=== PATIENT | male | born 1950 | race African-American/Black ===

== ENCOUNTER 2018-08-28 12:56 | Emergency (ER) | payer OTHER, BC ==
[~2018-08-28] VITALS: Ht 177.8 cm; Wt 70.3 kg
[~2018-08-28 12:56] MED LIST: ALEVE220 MG PO; ASA5UEC PO; ASPIR 8181 MG PO; ASPIRIN EC81 M1 PO; BYSTOLIC 5 MG5 M1 PO; BYSTOLIC10 MG PO; COZAAR 50 MG TA50 M2 PO; CYCLOBENZAPRINE10 MG PO; DARVOCET-N 1001 EACH PO; DIABETA; EFFIENT10 MG PO; GLYBURIDE 2.52.5 MG PO; HCTZ; LASIX 40 MG TAB40 M2 PO; LOPRESSOR; LOPRESSOR50 PO; METFORMIN; METFORMIN HCL500 MG PO; POTASSIUM20 PO; SIMVASTATIN; VITAMIN D3400 UNIT PO
[2018-08-28 13:20] LABS: ABSOLUTE NEUTROPHILS 5.6 thou/uL (1.4-8.2); BASOPHILS 1.1 % (0.0-2.0); EOSINOPHILS 7.4 % (0.0-3.0); HEMATOCRIT 38.9 % (42.0-52.0); HEMOGLOBIN 13.4 gm/dL (14.0-18.0); LYMPHOCYTES 17.2 % (24.0-44.0); MCH 29.2 pg (26.0-34.0); MCHC 34.4 g/dL (28.0-37.0); MCV 84.9 fL (80.0-100.0); MONOCYTES 6.1 % (1.0-8.0); PLATELET COUNT 224 thou/uL (150-400); POLYS 68.2 % (36.0-66.0); RBC 4.59 mil/uL (4.50-6.00); RDW 15.9 % (10.5-14.5); WBC 8.2 thou/uL (4.0-11.0)
[2018-08-28 13:29] LABS: ANION GAP 6 mmol/L (7-16); BUN 19 mg/dL (7-18); CALCIUM 9.5 mg/dL (8.5-10.1); CHLORIDE 99 mmol/L (98-107); CO2 32 mmol/L (21-32); CREATININE 1.6 mg/dL (0.7-1.3); GLUCOSE 351 mg/dL (74-106); POTASSIUM 5.1 mmol/L (3.5-5.1); SODIUM 137 mmol/L (136-145)
[2018-08-28] MEDS ORDERED: CILOSTAZOL 100100 M1 PO (13:37)
[2018-08-28 13:38] LABS: TROPONIN-I <0.06 ng/mL (<0.06)
[2018-08-28] MEDS ORDERED: TYLENOL325 M1 PO (15:12)
[2018-08-28] MEDS ORDERED: ULTRAM 50MG TAB50 MG PO (15:12)
[2018-08-28 15:19] VITALS: BP 141/76
--- NOTE | 2018-08-28 18:07 | EKG ---
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1950 Requested By: Miky Ornelas Order Number: [id number] MD: Enrrique Maya Measurements Intervals [place] Rate: 83 P: 60 NV: 130 QRS: 16 QRSD: 79 T: 226 QT: 373 QTc: 439 Interpretive Statements Sinus rhythm Nonspecific ST segment abnormality Compared to ECG 12/25/2015 07:45:57 No significant change was found Electronically Signed On 08-28-2018 18:06:54 CDT by Enrrique Maya [email or web address] ��������������������������������������������� <ELECTRONICALLY SIGNED> ���������������������������������������� By: Enrrique Maya MD, [facility] ��������������������������������������������� 08/28/18 1806 1308 1308 Enrrique Maya MD, FACC /EPI
== END 2018-08-28 15:28 | disposition home or self-care (01) ==
LOC: ER 12:56
PROVIDERS: Emergency Medicine
DX: R07.89 Other chest pain (principal); E11.9 Type 2 diabetes mellitus without complications; I10 Essential (primary) hypertension; E78.5 Hyperlipidemia, unspecified; Z86.19 Personal history of other infectious and parasitic diseases

== ENCOUNTER 2019-03-05 22:59 | Emergency (ER) | payer BC, OTHER ==
[~2019-03-05] VITALS: Ht 165.1 cm; Wt 63.5 kg
[~2019-03-05 22:59] MED LIST changes: +CILOSTAZOL 100100 M1 PO; +TYLENOL325 M1 PO; +ULTRAM 50MG TAB50 MG PO
[2019-03-06 00:58] LABS: ABSOLUTE NEUTROPHILS 6.3 thou/uL (1.4-8.2); BASOPHILS 0.7 % (0.0-2.0); EOSINOPHILS 9.5 % (0.0-3.0); HEMATOCRIT 40.8 % (42.0-52.0); LYMPHOCYTES 12.4 % (24.0-44.0); MCH 29.9 pg (26.0-34.0); MCHC 34.5 g/dL (28.0-37.0); MCV 86.7 fL (80.0-100.0); PLATELET COUNT 252 thou/uL (150-400); POLYS 70.4 % (36.0-66.0); RDW 15.1 % (10.5-14.5)
[2019-03-06 01:01] LABS: ANION GAP 7 mmol/L (7-16); BUN 21 mg/dL (7-18); CALCIUM 9.1 mg/dL (8.5-10.1); CHLORIDE 100 mmol/L (98-107); CO2 30 mmol/L (21-32); CREATININE 1.5 mg/dL (0.7-1.3); GLUCOSE 176 mg/dL (74-106); POTASSIUM 4.8 mmol/L (3.5-5.1); SODIUM 137 mmol/L (136-145)
[2019-03-06 01:11] LABS: ALBUMIN 3.6 g/dL (3.4-5.0); SGOT 16 U/L (15-37); SGPT 16 U/L (30-65); TOTAL BILIRUBIN 0.5 mg/dL (<0.1-1.0); TOTAL PROTEIN 8.6 g/dL (6.4-8.2); TROPONIN-I <0.06 ng/mL (<0.06)
[2019-03-06] MEDS ORDERED: GUAIFEN-CODEINE10 ML PO (02:59)
[2019-03-06] MEDS ORDERED: ZITHROMAX250 MG PO (02:59)
[2019-03-06 03:41] VITALS: BP 161/87
--- NOTE | 2019-03-06 15:12 | EKG ---
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
== END 2019-03-06 03:40 | disposition home or self-care (01) ==
LOC: ER 22:59
PROVIDERS: Emergency Medicine
DX: J18.9 Pneumonia, unspecified organism (principal); R07.89 Other chest pain; I10 Essential (primary) hypertension; E11.9 Type 2 diabetes mellitus without complications; E78.5 Hyperlipidemia, unspecified; I25.2 Old myocardial infarction; Z98.890 Other specified postprocedural states; Z95.2 Presence of prosthetic heart valve

== ENCOUNTER 2019-03-09 13:03 | Emergency (ER) | payer BC, OTHER ==
[~2019-03-09] VITALS: Ht 165.1 cm; Wt 63.5 kg
[~2019-03-09 13:03] MED LIST changes: +GUAIFEN-CODEINE10 ML PO; +ZITHROMAX250 MG PO
[2019-03-09] MEDS ORDERED: BYSTOLIC 5 MG5 M1 PO (13:32)
[2019-03-09 13:48] LABS: ABSOLUTE NEUTROPHILS 4.6 thou/uL (1.4-8.2); BASOPHILS 0.8 % (0.0-2.0); EOSINOPHILS 9.5 % (0.0-3.0); HEMATOCRIT 41.3 % (42.0-52.0); HEMOGLOBIN 13.8 gm/dL (14.0-18.0); LYMPHOCYTES 16.1 % (24.0-44.0); MCH 28.7 pg (26.0-34.0); MCHC 33.5 g/dL (28.0-37.0); MCV 85.8 fL (80.0-100.0); MONOCYTES 7.8 % (1.0-8.0); PLATELET COUNT 244 thou/uL (150-400); POLYS 65.8 % (36.0-66.0); RBC 4.82 mil/uL (4.50-6.00); RDW 15.4 % (10.5-14.5); WBC 7.1 thou/uL (4.0-11.0)
[2019-03-09 13:52] LABS: ANION GAP 7 mmol/L (7-16); BUN 15 mg/dL (7-18); CALCIUM 9.2 mg/dL (8.5-10.1); CHLORIDE 100 mmol/L (98-107); CO2 27 mmol/L (21-32); CREATININE 1.3 mg/dL (0.7-1.3); GLUCOSE 112 mg/dL (74-106); POTASSIUM 4.5 mmol/L (3.5-5.1); SODIUM 134 mmol/L (136-145)
[2019-03-09 14:02] LABS: ALBUMIN 3.4 g/dL (3.4-5.0); SGOT 24 U/L (15-37); SGPT 15 U/L (30-65); TOTAL BILIRUBIN 0.7 mg/dL (<0.1-1.0); TOTAL PROTEIN 8.2 g/dL (6.4-8.2); TROPONIN-I <0.06 ng/mL (<0.06)
[2019-03-09 14:12] LABS: URINE BILIRUBIN NEGATIVE (Negative); URINE BLOOD 2+ (Negative); URINE CLARITY CLEAR; URINE COLOR YELLOW; URINE GLUCOSE-RANDOM* NEGATIVE (Negative); URINE KETONES NEGATIVE (Negative); URINE LEUKOCYTES NEGATIVE (Negative); URINE NITRITE NEGATIVE (Negative); URINE PROTEIN (DIPSTICK) 3+ (Negative); URINE SPECIFIC GRAVITY >= 1.030 (1.005-1.035)
[2019-03-09 14:22] LABS: BACTERIA 1-9 Few /HPF (None Seen); CASTS None Seen /LPF (None Seen); CRYSTALS None Seen /LPF (None Seen); SQUAMOUS None Seen /LPF (0-3); URINE RBC 3-10 Few /HPF (0-2); URINE WBC 0-5 Rare /HPF (0-5)
[2019-03-09 15:00] VITALS: BP 93/59
[2019-03-09] MEDS ORDERED: TESSALON PERLE100 MG PO (15:02)
[2019-03-09] MEDS ORDERED: PROMETH-CODEIN 65 ML PO (15:02)
== END 2019-03-09 15:18 | disposition home or self-care (01) ==
LOC: ER 13:03
PROVIDERS: Emergency Medicine
DX: J06.9 Acute upper respiratory infection, unspecified (principal); E11.9 Type 2 diabetes mellitus without complications; I10 Essential (primary) hypertension; E78.5 Hyperlipidemia, unspecified; Z88.8 Allergy status to other drugs, medicaments and biological substances

== ENCOUNTER 2019-07-07 09:48 | Inpatient (IN) | payer BC, OTHER ==
[~2019-07-07] VITALS: Ht 162.6 cm; Wt 68.5 kg
[~2019-07-07 09:48] MED LIST changes: +ATORVASTATIN CA80 MG PO; +CLOPIDOGREL75 MG PO; +PROMETH-CODEIN 65 ML PO; +TESSALON PERLE100 MG PO
[2019-07-07 13:00] VITALS: BP 138/81
[2019-07-07 14:12] LABS: HEMATOCRIT 34.5 % (42.0-52.0); HEMOGLOBIN 11.4 gm/dL (14.0-18.0); MCH 28.1 pg (26.0-34.0); RBC 4.06 mil/uL (4.50-6.00); RDW 14.7 % (10.5-14.5); WBC 9.1 thou/uL (4.0-11.0)
[2019-07-07 14:30] LABS: CREATININE 1.5 mg/dL (0.7-1.3); POTASSIUM 4.2 mmol/L (3.5-5.1)
[2019-07-07 14:34] LABS: PROTIME 10.7 Seconds (9.3-11.4)
[2019-07-07 14:36] LABS: ALBUMIN 3.1 g/dL (3.4-5.0); TOTAL BILIRUBIN 0.5 mg/dL (<0.1-1.0); TOTAL PROTEIN 8.3 g/dL (6.4-8.2)
--- NOTE | 2019-07-07 15:22 | NUR ---
iv team paged a couple times for an order for PICC LINE instertion. Will try again
--- NOTE | 2019-07-07 15:41 | NUR ---
1300 pt admitted to 363, heart monitor applied. Vital signs, assessment and admission history completed. Fall risk and other consents signed. Pt belongings given to family.Pt personal pohone with pt. Dr. bolton in to see pt. Order's acknowledged.Pt decline SCD'S due to pain in the right foot. pt oriented to room. Call light and table within reach. Bed alarm on. Will continue to monitor. see assessment in patient chart.
--- NOTE | 2019-07-07 16:21 | NUR ---
DISCUSSED WITH PT MIDLINE OPTION PER SUGGESTION OF DR SZYMANSKI. PT REFUSED PIV INSERTED WITHOUT DIFFICULTY.
[2019-07-07 19:55] VITALS: BP 154/86
[2019-07-07 21:04] VITALS: BP 150/90
[2019-07-07 22:15] LABS: URINE BILIRUBIN NEGATIVE (Negative); URINE BLOOD TRACE (Negative); URINE CLARITY CLEAR; URINE COLOR YELLOW; URINE GLUCOSE-RANDOM* NEGATIVE (Negative); URINE KETONES NEGATIVE (Negative); URINE LEUKOCYTES-REFLEX NEGATIVE (Negative); URINE NITRITE-REFLEX NEGATIVE (Negative); URINE PROTEIN (DIPSTICK) 3+ (Negative); URINE SPECIFIC GRAVITY >= 1.030 (1.005-1.035)
--- NOTE | 2019-07-07 22:23 | NUR ---
PT WATCHING TV VISITING WITH FAMILY. IVF AND ANTIBIOTIC GOING. PT REQUESTED PILLOWS TO ELEVATE FEET. R TOE REMAINS GANGRENE. PT REPORTS PAIN AND FEELING IN TOE AND PRN PAIN MED PROVIDED. POSTIVE BLE AND PEDAL CIRCULATION. PT VERBALIZED UNDERSTANDING OF NPO P [place]. PT HAD DINNER BROUGHT IN BY FAMILY FRIED CHICKEN. GOOD EYE CONTACT APPROPRIATE AFFECT. UA SAMPLE OBTAINED.
[2019-07-07 22:27] LABS: BACTERIA-REFLEX 1-9 Few /HPF (None Seen); CASTS None Seen /LPF (None Seen); CRYSTALS None Seen /LPF (None Seen); SQUAMOUS 0-3 Few /LPF (0-3); URINE RBC 0-2 Rare /HPF (0-2); URINE WBC-REFLEX None Seen /HPF (0-5)
[2019-07-08] VITALS (7 sets, daily range): BP systolic 129–164; BP diastolic 73–93
[2019-07-08 05:53] LABS: HEMATOCRIT 29.1 % (42.0-52.0); MCH 28.8 pg (26.0-34.0); MCHC 34.2 g/dL (28.0-37.0); MCV 84.2 fL (80.0-100.0); RBC 3.46 mil/uL (4.50-6.00); RDW 14.8 % (10.5-14.5); WBC 7.6 thou/uL (4.0-11.0)
[2019-07-08 07:01] LABS: ALBUMIN 2.6 g/dL (3.4-5.0); CALCIUM 8.1 mg/dL (8.5-10.1); CREATININE 1.4 mg/dL (0.7-1.3); PHOSPHORUS 3.1 mg/dL (2.5-4.9); POTASSIUM 3.9 mmol/L (3.5-5.1)
--- NOTE | 2019-07-08 08:07 | NUR ---
patient went to OR AT 0755.
--- NOTE | 2019-07-08 15:03 | NUR ---
Nutrition: pt seen due to high risk screen for poor intake, weight loss. Pt admitted with right great toe gangrene, S/P toe amputation this am. S/P failed revascularization attempt 2 weeks ago. Pt reports decreased appetite since that procedure and a 6# weight loss (3%) in 2-3 months-not significant. Diet just advanced to carb controlled. pt has disliked a couple meals so RD instructed on meal ordering. Outside food has also been allowed for pt. Hx DM, PVD, HTN. On carb controlled diet. BG 133-257. RD stressed BG control for wound healing and adequate protein sources. Agrees to ensure max daily. Pt does not meet criteria for malnutrition at present. Consider low risk.
--- NOTE | 2019-07-08 16:27 | NUR ---
SW reviewed chart and spoke with nursing and attending physician. Pt was admitted from home due to right great toe gangrene. Pt off the unit have right great toe amputated. Per chart, pt lives at home. SW will follow up with pt at a later time. TATUM is following to assist as needed with discharge planning.
--- NOTE | 2019-07-08 18:25 | NUR ---
PATIENT BCAK TO UNIT FROM OR AT 1200. A/O X4. ICE PACK ON RIGHT GRAND TOE.VSS PROGRESSING TOWARDS POC GOALS.
--- NOTE | 2019-07-08 22:39 | NUR ---
PT RESTING IN BED, ICE PACK ON R FOOT WTIH GUAZE DRESSING. R FOOT POSTIVE CIRCULATION, WARM, PT REPORTS SENSATION, REMAINING TOES +1 EDEMA. DRESSING DRY. PT PROVIDED PRN FOR PAIN AT START OF SHIFT, PT REPORTED NOT WORKING AND PAIN INCREASING, REPORTED FEELING PAIN IN RLE AND WEAR TOE SHOULD BE. PROVIDED CONTACTED AND PRN TORADOL X 1 PROVIDED, WITH IMPROVED RELIEF. GOOD EYE CONTACT, APPROPRIATE AFFECT. PT VERBALIZING WANTING IVF TO BE DCD SO HE CAN AMBULATE FREEELY AND THAT HE WANTS TO BE HOME IN TIME FOR SUPERBOWL. PT HAD SEVERAL VISITORS . PT TOLERATING LIQUIDS AND FOOD. IVF AND ANTIBIOTIC CONTINUE. HEPARIN. SCD ON LLE. BED ALARM ON.
[2019-07-09] VITALS (7 sets, daily range): BP systolic 15–182; BP diastolic 59–94
--- NOTE | 2019-07-09 05:42 | NUR ---
IV INFILTRATED THIS AM. ATTEMPT NOT SUCCESSFUL WILL HAVE ADDITIONAL NURSES ATTEMPT RESTART OF IV. PT REPORTS IV NURSE PLACING LAST PERIPHERAL IV.
[2019-07-09 06:13] LABS: HEMATOCRIT 27.7 % (42.0-52.0); HEMOGLOBIN 9.4 gm/dL (14.0-18.0); MCH 28.1 pg (26.0-34.0); MCHC 33.7 g/dL (28.0-37.0); MCV 83.3 fL (80.0-100.0); RBC 3.33 mil/uL (4.50-6.00); RDW 14.7 % (10.5-14.5); WBC 7.9 thou/uL (4.0-11.0)
[2019-07-09 06:38] LABS: CALCIUM 8.1 mg/dL (8.5-10.1); CREATININE 1.3 mg/dL (0.7-1.3); POTASSIUM 4.8 mmol/L (3.5-5.1)
[2019-07-09 06:43] LABS: MAGNESIUM 1.8 mg/dL (1.8-2.4); PHOSPHORUS 2.3 mg/dL (2.5-4.9)
[2019-07-09 08:49] LABS: PROTIME 10.7 Seconds (9.3-11.4)
--- NOTE | 2019-07-09 15:28 | NUR ---
SW reviewed chart and spoke with nursing and attending physician. Pt is POD #1 of right great toe amputation. SW met with pt at bedside. Introduced role of SW. Pt is alert/orientated x 4. Pt reports she lives at home with his . Prior to admission, pt was independent with ADLs. Pt does have a walker, SC and crutches at home. Pt states he has used HH in the past, but unsure of provider. Pt's PCP is Dr. Demetrice Chaparro. Pt is on IV abx. Plan is for pt to discharge home when medically stable. SW is following to assist as needed with discharge planning.
--- NOTE | 2019-07-09 15:44 | NUR ---
ASSUMED CARE AT SHIFT CHANGE, ALERT AND ORIENTED X4. SR, AND VSS. MEDICATED FOR RT FOOT PAIN, S/P RT TOE AMPUTAION. VOMMITED X1 AFTER MEDICATED WITH PERCOCET, AND PATIENT STATED THAT HE DIDN'T NEED NAUSEA MEDICATIO. AND WILL CONTINUE WITH POC.
--- NOTE | 2019-07-09 18:35 | NUR ---
PT ARRIVED ON UNIT FROM 3W, PT AOX4. BP ELEVATED D/T STIMULI AND PAIN FROM RIGHT GREAT TOE. PT REFUSED PAIN MEDS AT THIS TIME. PT REPORTS PAIN 8/10, BUT WILL TAKE PO ANALGESIC AT BEDTIME TO SLEEP BETTER. IV FLUIDS ARE RUNNING, FALL PRECAUTIONS IN PLACE, CALL LIGHT AND PERSONAL ITEMS IN REACH. WILL CONTINUE TO MONITOR.
--- NOTE | 2019-07-10 04:40 | NUR ---
ASSUMED CARE OF PATIENT AT [facility] CHANGE. ASSESSMENT CHARTED. MEDICATIONS GIVEN PER AUG. PATIENT IS A&OX4 WITH FAMILY AT BEDSIDE, BP ELEVATED WITH PAIN; ALL OTHER VSS. PATIENT REASESSED 30 MIN LATER AND BP WAS LOWERED WITH REST, RELAXATION AND PRN PAIN MEDICATION. PATIENT VOICED PAIN 8/10 ON FOOT WITH SOME DISCOMFORT AT ABDOMEN. PATIENT WAS GIVEN I TAB OF PAIN MEDICATION WITH CRACKERS AND SPRITE TO PREVENT NAUSEA. PATIENT GOT UP TO TOILET THIS SHIFT X1 ASSIST AND TOLERATED WELL. PATIENT STATED HIS APPETITE WAS POOR AT DINNERTIME. DR. MARTINEZ SAW PATIENT ON . AND SUGGESSTED LOOSENING PATIENTS SIS WRAP BECAUSE OF PAIN. UPON NEUROVASCULAR CHECK ON R FOOT, PATIENT WAS FOUND TO HAVE EXTREME PAIN WHEN REMAINING TOES WERE SQUEEZED; SLIGHT DISCOLORATION NOTED. SIS WRAP WAS REMOVED FOR TONIGHT AFTER PATIENT AGREED TO ONLY USE URINAL DURING SLEEP HOURS. ICE PACK APPLIED TO SURGICAL SITE AND R FOOT ELEVATED. PATIENT VOICED NO PAIN WHEN RECHECKED THROUGHOUT NIGHT AND AGREES SIS ARAP MAY HAVE BEEN TOO TIGHT. PATIENT VOICED NO OTHER CONCERNS TONIGHT. IV ABX AND FLUIDS INFUSING. FALL PRECAUTIONS IN PLACE. WILL CONTINUE TO MONITOR AND FOLLOW PLAN OF CARE
[2019-07-10 06:02] LABS: HEMATOCRIT 32.6 % (42.0-52.0); HEMOGLOBIN 10.9 gm/dL (14.0-18.0); MCH 28.1 pg (26.0-34.0); MCHC 33.3 g/dL (28.0-37.0); MCV 84.3 fL (80.0-100.0); RBC 3.87 mil/uL (4.50-6.00); RDW 14.4 % (10.5-14.5); WBC 7.9 thou/uL (4.0-11.0)
[2019-07-10 06:19] LABS: CALCIUM 8.8 mg/dL (8.5-10.1); CREATININE 1.1 mg/dL (0.7-1.3); POTASSIUM 3.7 mmol/L (3.5-5.1)
[2019-07-10 07:35] VITALS: BP 169/109
--- NOTE | 2019-07-10 11:12 | HC ---
[facility] [place] [address] CONSULTATION Name: MARQUISE SUJATHA Room #: [address] [place] [address] IN M.R.#: [id number] Admission: 07/07/19 Attend Phys: Jaclyn Alfonso MD Discharge: Date of : 52 Report #: [id number] THIS REPORT FOR: //name// cc: Demetrice Chaparro Diane C. DO ~ THIS REPORT FOR: //name// CC: Stanley Alfonso DATE OF SERVICE: 07/09/2019 CHIEF COMPLAINT: Right great toe infection. HISTORY OF PRESENT ILLNESS: This is a 69-year-old male patient whom I saw briefly at the end of his last hospitalization for an ischemic right great toe. He had been admitted to the hospital with discoloration and discomfort. He was seen by Dr. Crawford and underwent angiography and stenting of the right common iliac and right external iliac artery due to subtotal occlusion of the mid lower right common iliac artery and high-grade restenosis throughout the proximal and mid right external artery. He, however, has developed increasing ischemic changes to the great toe has been admitted and has just undergone amputation of the great toe. PAST MEDICAL HISTORY: Positive for hypertension, COPD, diabetes, hyperlipidemia, coronary artery disease, and peripheral vascular disease. SOCIAL HISTORY: The patient smokes 6 cigarettes per day. No alcohol or drug use. He does note that he discontinued cigarette usage 3 weeks ago; however, is noted another one of the evaluations that he did resume smoking; however, he refused this at this time. ALLERGIES: LISINOPRIL. MEDICATIONS: Include atorvastatin, Pletal, clopidogrel, glyburide, metformin, Bystolic, tramadol, aspirin. REVIEW OF SYSTEMS: CONSTITUTIONAL: The patient denies fever, chills, or weight loss. NEUROLOGICAL: The patient denies focal weakness, numbness or tingling. EYES: The patient denies visual changes, redness, or drainage. ENT: The patient denies earache, nasal drainage or sore throat. CARDIOVASCULAR: The patient denies chest pain, palpitations or diaphoresis. PULMONARY: The patient denies cough or shortness of breath. GASTROINTESTINAL: The patient denies nausea, vomiting, diarrhea. [facility] [address] [place] [address] CONSULTATION Name: MARQUISE SUJATHA Room #: [facility] IN [facility].#: [id number] Admission: 07/07/19 Attend Phys: Jaclyn Alfonso MD Discharge: Date of : 52 Report #: [id number] ORTHOPEDIC: The patient has some pain at the amputation site. Other systems in a 14-point review of systems are negative. PHYSICAL EXAMINATION: VITAL SIGNS: Include temperature 36.5, pulse 65, blood pressure 177/90. GENERAL: This is a well-developed, well-nourished male patient who appears to be in minimal distress. HEENT: Head normocephalic. Nose and throat are clear. NECK: Supple. HEART: Sounds are present. ABDOMEN: Bowel sounds present. EXTREMITIES: Demonstrate a surgical dressing on the right foot. It is left intact. There is no strikethrough, no odor. NEUROLOGIC: The patient is alert, oriented and appropriate. LABORATORY DATA: White blood cell count 7.9 with hemoglobin 9.4. Sodium 137, potassium 3.7, chloride 102, BUN 9, creatinine 1.1. CLINICAL IMPRESSION: 1. Ischemic right great toe, now status post right great toe amputation. 2. Peripheral arterial disease detailed above, status post percutaneous intervention 3 weeks ago. RECOMMENDATIONS: At this point in time, we will leave surgical dressing in place for the time being. Additional decision making regarding dressing changes will be forthcoming once a few days past with the intact surgical dressing. All questions have been answered. I appreciate being asked to see the patient in consultation. <ELECTRONICALLY SIGNED> By: Chucky Desouza MD 07/10/19 1112 0820 0928 Chucky Desouza MD /nt
--- NOTE | 2019-07-10 12:22 | NUR ---
SW reviewed chart and spoke with nursing and attending physician. Pt [facility] and is progressing towards goals for discharge. No weekend discharge planned. Plan is for pt to go home when medically stable. TATUM is following to assist as needed with discharge planning.
[2019-07-10 13:55] VITALS: BP 143/97
--- NOTE | 2019-07-10 16:07 | PATH ---
[facility] [address] [place] [address] PATHOLOGY RPT PROCEDURE Name: MARQUISE SUJATHA Room #: 404-P ADM IN M.R.#: [id number] Admission: 07/07/19 Date of : 52 Discharge: Report #: [id number] Path Case #: [id number] [facility] Accession Number: [id number] . 01 Material submitted: . hallux - RIGHT GREAT TOE. Modifiers: right . 01 Clinical history: . RIght great toe wound . 02 Diagnosis: Toe, right great toe, amputation: - Ulceration as well as gangrenous necrosis involving the skin and subcutaneous tissue. - Marked acute inflammation extending into underlying bone associated with acute osteomyelitis. - Bone margin viable. (IUV:stock taker; 07/10/2019) MBR 07/10/2019 1115 Local . 02 Electronically signed: . Sophia Duvall MD, Pathologist NPI- [id number] . 01 Gross description: . The specimen is received in formalin, labeled "Marquise Jensen, right great toe". Received is an amputated digit measuring 6.3 x 3.2 x 2.8 cm in greatest dimensions. The bone margin is smooth and concave in appearance, consistent with disarticulation. The bone and soft tissue margins are inked black. The nail is present displaying a guzman-norton and thickened appearance. The epidermal surface is predominantly dusky guzman-norton to guzman-black in appearance. On the dorsal aspect, there is a moderate amount of skin slippage as well as a poorly circumscribed, irregular in contour and guzman-brown to brown-like lesion measuring 3.3 x 2.0 cm, which is 0.6 cm from the closest skin margin. The specimen is submitted senior human resources representative as follows: . A1 horizontal cross-section through lesion, following decalcification A2 longitudinal cross-section through bone margin, following the calcification. (CAA; 07/09/2019) QAC/QAC 07/09/2019 0851 Local . 02 Pathologist provided ICD-10: M86.171 . 02 CPT . [address] [address] PATHOLOGY RPT PROCEDURE Name: MARQUISE SUJATHA Room #: 404-P ADM IN M.R.#: [id number] Admission: 07/07/19 Date of : 52 Discharge: Report #: [id number] Path Case #: [id number] Specimen Comment: A courtesy copy of this report has been sent to [phone], [phone] Specimen Comment: [phone], , Specimen Comment: Report sent to ,DR CAMPBLEL / DR PEREZ Specimen Comment: DR SZYMANSKI Performed at: [address], [place], [place] [id number] MD Krystian Little MD Phone: [phone] Performed at: [address] [id number] MD Sophia Duvall MD Phone: [phone]
--- NOTE | 2019-07-10 16:26 | NUR ---
ASSUMED CARE OF PT AT 0700. PT AOX4, VSS, PAIN CONTROLLED WITH PO PAIN ANALGESIC. PT RECEIVED 1 TAB, PT RATES PAIN 6/10 AT THIS TIME. PT UP WITH STAND BY ASSISTANCE AND WALKER. PT WORKING WELL WITH PHYSICAL THERAPY, HEEL WEIGHT BEARING SHOE ORDERED. PT TOLERATING DIET WITHOUT N/V. WOUND CARE NURSE CHANGED DRESSING ON RIGHT FOOT. FOOT CURRENTLY ELEVATED ON PILLOW. DRESSING REMAINS D&I. FALL PRECAUTIONS IN PLACE. CALL LIGHT/PERSONAL ITEMS IN REACH. WILL CONTINUE TO MONITOR PT.
--- NOTE | 2019-07-10 18:38 | HC ---
[facility] [place] [place] [address] CONSULTATION Name: MARQUISE SUJATHA Room #: [facility]- ADM IN M.R.#: [id number] Admission: 07/07/19 Attend Phys: Jaclyn Alfonso MD Discharge: Date of : 52 Report #: [id number] THIS REPORT FOR: cc: Demetrice Chaparro,Alpehs Walters MD ~ THIS REPORT FOR: //name// CC: Stanley Alfonso DATE OF SERVICE: 07/09/2019 INFECTIOUS DISEASE CONSULTATION REASON FOR CONSULTATION: I was asked to evaluate concerning gangrene of his right first toe. HISTORY OF PRESENT ILLNESS: The patient is a 69-year-old with underlying diabetes, peripheral vascular disease. 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 Subsequent to this, his toe worsened with increased pain, swelling and erythema with extension of the erythema extending to his distal leg. Denied any fever, chills or sweats. It was noted that during his previous hospitalization, the right great toe was blue. He had noticed no specific trauma. He was taken to surgery yesterday for amputation of his toe by Dr. Ortega. No intraoperative complications. Postoperatively, he is having a significant amount of pain, which is moderately controlled with his narcotics. He has noticed some hypersensitivity to toes #2 and #3. ALLERGIES: LISINOPRIL WITH COUGH. MEDICATIONS: As noted on his MAR, which was reviewed. He is on insulin. PAST MEDICAL HISTORY: Coronary artery disease, hypertension, hyperlipidemia, peripheral vascular disease, diabetes, COPD, right radius and ulnar fracture with repair. FAMILY HISTORY: Noncontributory. SOCIAL HISTORY: He is a smoker of cigarettes with no significant alcohol intake or drug use. [facility] [address] [place] [address] CONSULTATION Name: MARQUISE SUJATHA Room #: 404-P [facility] IN .R.#: [id number] Admission: 07/07/19 Attend Phys: Jaclyn Alfonso MD Discharge: Date of : 52 Report #: [id number] REVIEW OF SYSTEMS: Ten-point review was negative other than what has been described above. PHYSICAL EXAMINATION: VITAL SIGNS: Afebrile and hemodynamically stable. GENERAL: He was alert and cooperative. He was in no acute distress, lying in bed. Family was visiting and he was comfortable. EYES: Without scleral icterus. MOUTH: Without mucositis. NECK: Supple with no thyromegaly or mass. LUNGS: Clear to auscultation. HEART: Regular without murmur, gallop or rub. ABDOMEN: Soft and nontender with no palpable masses or hepatosplenomegaly. GENITAL AND RECTAL: Not performed. EXTREMITIES: Pulses in the groin 3+. Palpable pulse in the popliteal space. Due to his surgical wrap, could not evaluate pulses to his right foot. His toes were tender to palpation, #2 and #3. Delayed capillary refill. No drainage to his dressing. He did have an Mike wrap in place, which appeared fairly tight. No other skin lesions noted. Strength in his upper and lower extremities symmetric, and within normal limits. PSYCHIATRIC: Mood was normal. BACK: Nontender with no spinal tenderness or CVA tenderness. LABORATORY STUDIES: Reviewed. MICROBIOLOGY: Reviewed. IMAGING STUDIES: Reviewed. IMPRESSION: A 69-year-old with: 1. Diabetes and peripheral vascular disease, gangrene of his right first toe, status post amputation, postoperative day #1. So far, growth of Pseudomonas aeruginosa. 2. Diabetes. 3. Hypertension. 4. Ischemic cardiomyopathy. 5. Tobacco use. 6. Chronic obstructive pulmonary disease. RECOMMENDATIONS: We will continue IV antibiotic therapy for Staph, strep and pseudomonas coverage. Await for dressing change to establish extent of soft tissue infection that remains. We will check laboratory studies including inflammatory markers. The patient will continue [place] [address] CONSULTATION Name: MARQUISE SUJATHA Room #: 404-P [facility] IN [facility].#: [id number] Admission: 07/07/19 Attend Phys: Jaclyn Alfonso MD Discharge: Date of : 52 Report #: [id number] discussed with nursing staff and the patient's family at the bedside. I would recommend loosening his compression wrap. We will follow. <ELECTRONICALLY SIGNED> By: Alpesh Jara MD 07/10/19 1838 [id number] [id number] Alpesh Jara MD /belem
[2019-07-10 19:20] VITALS: BP 144/86
[2019-07-10 21:00] VITALS: BP 144/86
--- NOTE | 2019-07-11 03:15 | NUR ---
ASSUMED CARE OF PATIENT AT APPROX 1999. ASSESSMENT CHARTED. MEDICATIONS GIVEN PER AUG. PATIENT IS A&OX4 WITH FAMILY AT BEDSIDE THIS EVENING. VSS. PATIENT VOICES INTERMITTENT PAIN AT 8/10. PATIENT REFUSED 2 TABLETS OF PAIN MED AND REQUESTED ONLY 1. PATIENT ELEVATED R FOOT AND ICED IT; PAIN WENT DOWN TO 6/10 AND PRN OXYCODONE WAS ADMINISTERED TO HELP LOWER REMAINING PAIN LEVEL. PATIENT STATES HE FEELS "GHOST PAIN". PATIENT IS STILL UNHAPPY WITH FOOD HERE. PATIENTS FOOT DRESSING REMAINS C/D/I. PATIENT IS USING HIS URINAL TO VOID THIS SHIFT. UPON HOURLY CHECKS PATIENT DENIES PAIN. PATIENT VOICES NO OTHER NEEDS AT THIS TIME. PER CM, NO WEEKEND DISCHARGE IS ANTICIPATED BUT PLAN IS TO D/C HOME ONCE MEDICALLY STABLE. PT TO COME EDUCATE PATIENT ON USING BOOT THIS MORNING 07/11. RECIEVING ABX AND FLUIDS ON L AC @ 75MLS/HR. FALL PRECAUTIONS IN PLACE. PATIENT CALLS OUT APPROPRIATELY. WILL CONTINUE TO MONITOR AND FOLLOW PLAN OF CARE
[2019-07-11 04:46] LABS: HEMATOCRIT 30.6 % (42.0-52.0); HEMOGLOBIN 10.1 gm/dL (14.0-18.0); MCHC 33.2 g/dL (28.0-37.0); MCV 84.6 fL (80.0-100.0); RBC 3.62 mil/uL (4.50-6.00); RDW 14.4 % (10.5-14.5); WBC 7.1 thou/uL (4.0-11.0)
--- NOTE | 2019-07-11 05:00 | NUR ---
THIS NURSE AGREES WITH ASSESSMENT AND NOTE BY MANAGER OFFICE SERVICES ON THIS PATIENT.
[2019-07-11 05:19] LABS: CALCIUM 8.4 mg/dL (8.5-10.1); CREATININE 1.5 mg/dL (0.7-1.3); POTASSIUM 3.7 mmol/L (3.5-5.1)
[2019-07-11 07:10] VITALS: BP 167/100
[2019-07-11 14:50] VITALS: BP 160/90
[2019-07-11 19:27] VITALS: BP 165/106
--- NOTE | 2019-07-11 19:34 | NUR ---
ASSUMED CARE OF PATIENT AT 0715, PATIENT ALERT AND ORIENTED X 4. PATIENT DENIES PAIN THIS AM, BUT C/O PAIN WITH RIGHT FOOT, RECEIVED OXYCODONE 1 TABLET AT END OF THE SHIFT. PATIENT HAS LEFT AC IV WITH NS AT 75CC/HR. DRESSING TO RIGHT FOOT DONE, PATIENT IS NWB ON RIGHT. PATIENT HAS BOOT FOR RIGHT FOOT, NO PT SAW THE PATIENT TODAY. BLOOD SUGAR MONITORING ORDERED. PATIENT REFUSED LUNCH INSULIN, WILL CONTINUE TO MONITOR.
[2019-07-11 23:57] VITALS: BP 183/99
[2019-07-12 01:17] VITALS: BP 175/102
--- NOTE | 2019-07-12 01:57 | NUR ---
PATIENT ALERT AND ORIENTED X3. IVF INFUSING W/O COMPLICATION. BS MONITORED PER ORDER AND WAS 86 AT 2100. GIVEN SNACK AND PATIENT WAS SURE THAT HIS BS WOULD NOT DROP OVERNIGHT. DRESSING TO RIGHT FOOT DRY AND INTACK. PATIENT UP TO BATHROOM WITH SBA. BP ELEVATED AND GIVEN PRN HYDRALAZINE IVP (183/99) RECHECKED AT 0115 (175/102). PATIENT IS RESTLESS AND TALKING LOUDLY ON THE PHONE AT MT FOR APPROXIMATELY 30 MINUTES. THIS NURSE WENT IN HIS ROOM AND ASKED HIM TO STAY OFF OF THE PHONE, TURN THE LIGHTS OFF AND GET SOME REST DUE TO HIS BP. PATIENT STATED HE WOULD TURN ON HIS JAZZ, TURN THE LIGHTS OFF AND THAT USUALLY WORKS FOR HIM. APPROXIMATELY 20 MINUTES LATER HIS DAUGHTER CAME TO VISIT. THIS NURSE SPOKE WITH HER REGARDING PATIENTS BLOOD PRESSURE AND NEED FOR REST AND ASKED HER NOT TO STAY LONG. AT APPROX 0200 HE RANG OUT BECAUSE THE IV MACHING WAS BEEPING. VERY FUSSY ABOUT INTERRUPTIONS DURING THE DAY AND THAT HE HAD NOT GOTTEN ANY REST BECAUSE SOMEONE WAS ALWAYS IN HIS ROOM BEFORE THIS NURSE ARRIVED. IT WAS RESTATED OF THE NEED FOR QUIET AND REST AND THAT HIS BP WOULD BE RECHECKED AT APPROX 0500. DAUGHTER IS IN GERICHAIR AND WILL BE STAYING THE REMAINDER OF THE NIGHT. NEXT PRN BP MEDICATION NOT AVAILABLE UNTIL APPROX. 0600. PATIENT IS RESTING.
[2019-07-12 05:01] VITALS: BP 159/95
--- NOTE | 2019-07-12 06:22 | NUR ---
BP THIS AM AT 0500 159/95. PATIENT STATED THAT HE FELT BETTER AND SOMEWHAT RESTED. WILL MONITOR.
[2019-07-12 07:25] VITALS: BP 223/134
[2019-07-12 15:12] VITALS: BP 141/87
--- NOTE | 2019-07-12 16:33 | NUR ---
ASSUMED CARE OF THE PATIENT AT 0715, PATIENT DENIES PAIN THIS SHIFT. PATIENT B/P ELEVATED THIS AM, HYDRALAZINE 10 MG IV GIVEN, WITH GOOD RESULT. DR HALL NOTIFIED ABOUT RESTARTING PATIENT'S B/P MEDS. BYSTOLIC 10MG PO STARTED. B/P CAME DOWN TO 141/87. MICHAEL/PT HERE TODAY, EDUCATED PATIENT ON WEARING THE BOOT ON RIGHT FOOT, RIGHT GREAT TOE AMP. STITCHES IN PLACE. DRESSING C/D/I. PATIENT DENIES PAIN THIS SHIFT. THIS RN NOTIFIED DR HALL OF PATIENT REFUSING INSULIN, HE REFUSED BREAKFAST AND TOOK INSULIN AT LUNCH. IV FLUIDS DISCONTINUED, BUT CONTINUES IV ANTIBIOTICS, PATIENT HAS LEFT AC IV IN PLACE. WILL CONTINUE TO MONITOR.
[2019-07-12 21:15] VITALS: BP 170/100
[2019-07-12 22:00] VITALS: BP 170/100
--- NOTE | 2019-07-12 23:41 | NUR ---
PATIENTS BP WAS ELEVATED. PATIENT STATED HYDRALAZINE "MAKES ME FEEL SICK AND CONFUSED", AND THINKS HIS HIGH BP IS D/T WATCHING A FOOTBALL GAME AND BEING EXCITED ABOUT IT. PATIENT AGREED TO HAVE HIS BP REASSESSED AFTER A WHILE SO HE IS "SETTLED DOWN". PATIENT IS ASYMPTOMATIC. WILL CONT TO MONITOR
--- NOTE | 2019-07-13 04:30 | NUR ---
ASSUMED CARE OF PATIENT AT APPROX. 1999. ASSESSMENT CHARTED, MEDICATION GIVEN PER AUG. PATIENT IS A&OX4; FAMILY AT BEDSIDE. VSS; BP WAS ELEVATED. PATIENT WILL BE MONITORED AND REASSESSED FOR NEED FOR PRN BP MEDS. PATIENT DENIES PAIN BUT VOICES DISCOMFORT IN ABDOMEN. PATIENT REFUSES PAIN MEDICATION. PATIENT GOT UP TOILET THIS SHIFT W A WALKER AND TOLERATED WELL. PATIENT FOOT WOUND REMAINS C/D/I W NO S/S OF INFECTION. PATIENT WAS EDUCATED BOUT IMPORTANCE OF QUITTING SMOKING AND PATIENT STATED "I STOPPED SMOKING SINCE THE LAST TIME I WAS HERE" REFERRING TO HAVE GONE COLD TURKEY SINCE HIS PRIOR HOSPITALIZATION HERE AT THIS HOSPITAL. PATIENT IS PREGRESSING WELL TOWARDS POC. PATIENT DID RECIEVE PRN HYDRALAZINE FOR HIGH BP BUT C/O BEING RESTLESS AND QUEASY AFTER RECIEVING IT. PER PHYSICIAN NOTE, PATIENT TO D/C BACK HOME THIS AM 07/13/19. FALL PRECAUTIONS IN PLACE; PATIENT CALLS OUT APPROPRIATELY FOR NEEDS. AT THIS TIME PATIENT VOICES NO OTHER CONCERNS. WILLL CONTINUE TO MONITOR AND FOLLOW PLAN OF CARE
--- NOTE | 2019-07-13 05:25 | NUR ---
THIS NURSE AGREES WITH ASSESSMENT AND NOTES BY SWEATBAND MAKER ON THIS PATIENT.
[2019-07-13 07:14] VITALS: BP 137/88
[2019-07-13] MEDS ORDERED: PERCOCET PO (12:52)
[2019-07-13] MEDS ORDERED: CIPRO500 M1 PO (12:53)
--- NOTE | 2019-07-13 13:45 | NUR ---
DISCHARGE NOTE: SW reviewed chart and spoke with nursing and attending physician. Pt is medically stable for discharge home today with HH services. SW met with pt at bedside to provide update and notify of HH Orders. SW provided pt with list of in-network providers for HH agencies. No preference voiced. Pt's family to provide transportation home when pt is ready. program services planner to fax HH referral and discharge orders/summary to a HH provider. No additional SW needs identified at this time, but is available to assist should needs arise.
[2019-07-13 14:02] VITALS: BP 137/88
--- NOTE | 2019-07-13 14:10 | NUR ---
DISCHARGE HOME TODAY. HOME HEALTH RECOMMENDED AT DISCHARGE FOR WOUND CARE NEEDS. POST RIGHT GREAT TOE AMPUTATION. PATIENT REFERRAL FAXED TO [facility] PER REQUEST. CALL PLACED TO [facility] TO NOTIFY. AWAITING RESPONSE. FOLLOWING.
[2019-07-13 14:43] VITALS: BP 139/91
--- NOTE | 2019-07-13 18:30 | NUR ---
ASSUMED CARE OF THE PATIENT AT 0715, PATIENT ALERT AND ORIENTED X 4. UP WITH ASSIST X 1, HAS TO HEEL WEIGHT BEARING SHOE IN PLACE. ORDER FOR WEIGHT BEARING SHOE ORDERED THRU [facility]ANG[facility], BROUGHT TO THE UNIT ABOUT 1700, NICOLETTE/PT WORKED WITH THE PATIENT PRIOR TO DISCHARGE. LEFT AC IV REMOVED PRIOR TO DISCHARGE. PATIENT REFUSED HEPARIN AND IV ANTIBIOTIC/ZOSYN. NO C/O PAIN THIS SHIFT. DR HALL HERE THIS AM, RECEIVED ORDER TO DISCHARGE TO HOME WITH HOMEHEALTH. RIGHT FOOT DRESSING CHANGED BY SAHIL/RN/WOUND CARE. THIS RN WENT OVER ALL DISCHARGE INSTRUCTIONS AND SENT ALL PERSONAL BELONGINGS WITH THE PATIENT. HERE TO TRANSPORT THE PATIENT HOME.
--- NOTE | 2019-07-15 10:35 | O ---
[facility] [place] [address] OPERATIVE REPORT Name: MARQUISE SUJATHA Room #: 404-P [facility] IN M.R.#: [id number] Admission: 07/07/19 Attend Phys: Jaclyn Alfonso MD Discharge: 07/13/19 Date of : 52 Report #: [id number] THIS REPORT FOR: //name// CC: Stanley Alfonso PREOPERATIVE DIAGNOSES: Right great toe gangrene, dry. POSTOPERATIVE DIAGNOSES: Right great toe gangrene, dry. PROCEDURE PERFORMED: Right great toe amputation at the MTP joint level. SURGEON: Guillermo Ortega MD ANESTHESIA: General. FLUIDS: 300 mL crystalloid. ESTIMATED BLOOD LOSS: Negligible. TOURNIQUET TIME: Approximately 13 minutes. DESCRIPTION OF PROCEDURE: After proper identification of the patient and operative site in the preoperative holding area, the operative site was signed by myself. The patient has failed recent revascularization and he has been recommended great toe amputation by multiple providers. He and his family present wished to proceed with the above. The patient was brought back to the operative suite after induction of satisfactory general anesthesia, the right lower extremity was sterilely prepped and draped in usual manner. Tourniquet was applied to the upper thigh. The patient's dry gangrene extended onto the proximal phalanx of the great toe. His soft tissues appeared viable at this time for an amputation at the MTP joint level. A curvilinear incision with anterior and posteriorly based flaps were able to be fashioned and after this had been sterilely prepped and draped and elevated for exsanguination, the tourniquet was inflated. Full thickness skin flaps were developed and the great toe was disarticulated at the MTP joint. Majority of the sesamoids were removed. Neurovascular bundles were pulled distally and sectioned and cauterized and retracted, allowed to retract. The soft tissues appeared amenable to primary closure in this area and was irrigated with antibiotic irrigant and closed with 2-0 nylon sutures in a simple pkbevv-gw-domzf fashion. There appeared to be no excess tension across the repair site. Toe was sent for specimen and a sterile dressing was applied with mild compression at this [facility] [address] [place] [address] OPERATIVE REPORT Name: MARQUISE SUJATHA Room #: 404-P DIS IN M.R.#: [id number] Admission: 07/07/19 Attend Phys: Jaclyn Alfonso MD Discharge: 07/13/19 Date of : 52 Report #: [id number] region. He was awakened and transferred to the recovery room in stable condition. <ELECTRONICALLY SIGNED> By: Guillermo Ortega MD 07/15/19 1035 1536 1553 Guillermo Ortega MD /nt
== END 2019-07-13 18:30 | disposition home health service (06) | DRG 256 ==
LOC: HYPER 09:48 → 3W 12:24 → 4N 07-09 18:02
PROVIDERS: Hospitalist; ADMIT Internal Medicine
PROC: 0Y6P0Z0 Detachment at Right 1st Toe, Complete, Open Approach (ICD-10-PCS; principal; 2019-07-07)
DX: E11.52 Type 2 diabetes mellitus with diabetic peripheral angiopathy with gangrene (principal); I96 Gangrene, not elsewhere classified; I25.10 Atherosclerotic heart disease of native coronary artery without angina pectoris; K21.9 Gastro-esophageal reflux disease without esophagitis; E78.5 Hyperlipidemia, unspecified; F17.210 Nicotine dependence, cigarettes, uncomplicated; B96.5 Pseudomonas (aeruginosa) (mallei) (pseudomallei) as the cause of diseases classified elsewhere; J44.9 Chronic obstructive pulmonary disease, unspecified; I25.5 Ischemic cardiomyopathy; Z71.6 Tobacco abuse counseling; I25.2 Old myocardial infarction; Z86.19 Personal history of other infectious and parasitic diseases; Z84.1 Family history of disorders of kidney and ureter; Z87.81 Personal history of (healed) traumatic fracture; Z95.5 Presence of coronary angioplasty implant and graft
CPT/HCPCS: 10779; 10790; 10879; 50010; 50101; 50386; 56525; 57091; 57179; 62110; 62900; 70005

== ENCOUNTER → 2019-08-07 | Outpatient (CLI) | payer BC, OTHER ==
[~2019-08-07] MED LIST changes: +CIPRO500 M1 PO; +PERCOCET PO
[2019-08-07 14:05] VITALS: BP 146/81
--- NOTE | 2019-08-07 15:27 | NUR ---
VASCULAR ACCESS CONSULTED FOR PICC LINE. PT'S LABS,MEDS,HISTORY,ORDER AND CONSENT VERIFIED. DISCUSSED BENEFITS AND RISK WITH PT AND FAMILY, VERBALIZED UNDERSTANDING. AMIRAH BRACHIAL WIDELY PATENT WITH USG. 4FR SL POWER PICC TRIMMED TO 42CM INSERTED TRO 0CM. PT TOLERATED WELL. STAT CXR OBTAINED
--- NOTE | 2019-08-07 15:31 | NUR ---
CXR CONFIRMED PLACEMENT OF PICC, RELEASED FOR IMMEDIATE USE PER PROTOCOL TO MIRIAN BLACKWELL
[2019-08-07 16:05] LABS: HEMOGLOBIN 10.9 gm/dL (14.0-18.0); MCH 28.1 pg (26.0-34.0); MCHC 33.1 g/dL (28.0-37.0); MCV 84.9 fL (80.0-100.0); RBC 3.89 mil/uL (4.50-6.00); WBC 6.1 thou/uL (4.0-11.0)
[2019-08-07 16:26] LABS: ALBUMIN 3.2 g/dL (3.4-5.0); CALCIUM 8.9 mg/dL (8.5-10.1); CREATININE 1.1 mg/dL (0.7-1.3); POTASSIUM 3.8 mmol/L (3.5-5.1); TOTAL BILIRUBIN 0.4 mg/dL (<0.1-1.0); TOTAL PROTEIN 7.2 g/dL (6.4-8.2)
--- NOTE | 2019-08-07 17:10 | NUR ---
IN FOR PICC LINE PLACEMENT AND 1ST DOSE OF ERTAPENEM. ADMISSION HISTORY AND ASSESSMENT COMPLETED. IV TEAM PLACED PICC LINE IN AMIRAH. CXR DONE AND VERIFIED PROPER PLACEMENT. ERTAPENM GIVEN AND TOLERATED WELL. PRANAV LABS FROM PICC LINE WITHOUT DIFFICULTY. [facility] VISITED TO INSTRUCT ON HOME ANTIBIOTIC THERAPY. DISMISSED IN STABLE CONDITION.
== END ==
LOC: OPONC 13:58
PROVIDERS: Specialist
DX: S98.111A Complete traumatic amputation of right great toe, initial encounter (principal); A49.8 Other bacterial infections of unspecified site; X58.XXXA Exposure to other specified factors, initial encounter; Y93.89 Activity, other specified
CPT/HCPCS: 27000; 95000

== ENCOUNTER → 2019-08-24 | Outpatient (CLI) | payer BC, OTHER | LOC: HYPER 08:22 | DX: T87.81 Dehiscence of amputation stump (principal); E11.621 Type 2 diabetes mellitus with foot ulcer; E11.52 Type 2 diabetes mellitus with diabetic peripheral angiopathy with gangrene; M79.604 Pain in right leg; B19.20 Unspecified viral hepatitis C without hepatic coma; I10 Essential (primary) hypertension; E78.5 Hyperlipidemia, unspecified; I25.2 Old myocardial infarction; Z79.84 Long term (current) use of oral hypoglycemic drugs; Z79.82 Long term (current) use of aspirin; Z95.820 Peripheral vascular angioplasty status with implants and grafts; Z87.891 Personal history of nicotine dependence; Y83.5 Amputation of limb(s) as the cause of abnormal reaction of the patient, or of later complication, without mention of misadventure at the time of the procedure ==

== ENCOUNTER → 2019-09-10 | Outpatient (CLI) | payer BC, OTHER | LOC: HYPER 09-09 16:12 | DX: T87.81 Dehiscence of amputation stump (principal); E11.621 Type 2 diabetes mellitus with foot ulcer; L97.516 Non-pressure chronic ulcer of other part of right foot with bone involvement without evidence of necrosis; E11.52 Type 2 diabetes mellitus with diabetic peripheral angiopathy with gangrene; I96 Gangrene, not elsewhere classified; B19.20 Unspecified viral hepatitis C without hepatic coma; E78.5 Hyperlipidemia, unspecified; M79.604 Pain in right leg; I10 Essential (primary) hypertension; I25.2 Old myocardial infarction; Z79.84 Long term (current) use of oral hypoglycemic drugs; Z79.82 Long term (current) use of aspirin; Z87.891 Personal history of nicotine dependence; Z95.5 Presence of coronary angioplasty implant and graft; Y83.5 Amputation of limb(s) as the cause of abnormal reaction of the patient, or of later complication, without mention of misadventure at the time of the procedure ==

== ENCOUNTER → 2019-09-21 | Outpatient (CLI) | payer OTHER, BC | LOC: SJCVCIMAG 10:27 | DX: I70.203 Unspecified atherosclerosis of native arteries of extremities, bilateral legs (principal); Z95.820 Peripheral vascular angioplasty status with implants and grafts ==

== ENCOUNTER → 2019-09-24 | Outpatient (CLI) | payer OTHER, BC | LOC: HYPER 09:10 → SJCVCIMAG 09:10 → HYPER 15:23 | DX: R94.31 Abnormal electrocardiogram [ECG] [EKG] (principal); I25.10 Atherosclerotic heart disease of native coronary artery without angina pectoris; R06.02 Shortness of breath; I10 Essential (primary) hypertension; E11.51 Type 2 diabetes mellitus with diabetic peripheral angiopathy without gangrene; E78.00 Pure hypercholesterolemia, unspecified; J44.9 Chronic obstructive pulmonary disease, unspecified; Z95.1 Presence of aortocoronary bypass graft ==

== ENCOUNTER → 2019-09-25 | Outpatient (CLI) | payer OTHER, BC | LOC: SJCVCIMAG 08:05 | DX: I25.10 Atherosclerotic heart disease of native coronary artery without angina pectoris (principal); E78.5 Hyperlipidemia, unspecified; I10 Essential (primary) hypertension; I73.9 Peripheral vascular disease, unspecified; J44.9 Chronic obstructive pulmonary disease, unspecified; E11.9 Type 2 diabetes mellitus without complications; Z95.1 Presence of aortocoronary bypass graft ==

== ENCOUNTER → 2019-10-06 | Outpatient (CLI) | payer OTHER, BC | LOC: HYPER 09:04 | DX: T81.31XD Disruption of external operation (surgical) wound, not elsewhere classified, subsequent encounter (principal); E11.621 Type 2 diabetes mellitus with foot ulcer; L97.514 Non-pressure chronic ulcer of other part of right foot with necrosis of bone; E11.69 Type 2 diabetes mellitus with other specified complication; M86.671 Other chronic osteomyelitis, right ankle and foot; E11.52 Type 2 diabetes mellitus with diabetic peripheral angiopathy with gangrene; I96 Gangrene, not elsewhere classified; E11.40 Type 2 diabetes mellitus with diabetic neuropathy, unspecified; E78.5 Hyperlipidemia, unspecified; B19.20 Unspecified viral hepatitis C without hepatic coma; M79.604 Pain in right leg; I10 Essential (primary) hypertension; I25.2 Old myocardial infarction; Z79.84 Long term (current) use of oral hypoglycemic drugs; Z79.82 Long term (current) use of aspirin; Z87.891 Personal history of nicotine dependence; Y83.8 Other surgical procedures as the cause of abnormal reaction of the patient, or of later complication, without mention of misadventure at the time of the procedure ==

== ENCOUNTER → 2019-10-07 | Outpatient (CLI) | payer OTHER, BC | LOC: HYPER 08:13 | DX: T81.31XD Disruption of external operation (surgical) wound, not elsewhere classified, subsequent encounter (principal); E11.621 Type 2 diabetes mellitus with foot ulcer; L97.514 Non-pressure chronic ulcer of other part of right foot with necrosis of bone; E11.69 Type 2 diabetes mellitus with other specified complication; M86.671 Other chronic osteomyelitis, right ankle and foot; E11.52 Type 2 diabetes mellitus with diabetic peripheral angiopathy with gangrene; I96 Gangrene, not elsewhere classified; I10 Essential (primary) hypertension; I25.2 Old myocardial infarction; E78.5 Hyperlipidemia, unspecified; Z87.891 Personal history of nicotine dependence; Y83.8 Other surgical procedures as the cause of abnormal reaction of the patient, or of later complication, without mention of misadventure at the time of the procedure ==

== ENCOUNTER → 2019-10-08 | Outpatient (CLI) | payer OTHER, BC | LOC: HYPER 09:09 | DX: T87.81 Dehiscence of amputation stump (principal); E11.621 Type 2 diabetes mellitus with foot ulcer; L97.514 Non-pressure chronic ulcer of other part of right foot with necrosis of bone; E11.69 Type 2 diabetes mellitus with other specified complication; M86.671 Other chronic osteomyelitis, right ankle and foot; E11.52 Type 2 diabetes mellitus with diabetic peripheral angiopathy with gangrene; I96 Gangrene, not elsewhere classified; B19.20 Unspecified viral hepatitis C without hepatic coma; E78.5 Hyperlipidemia, unspecified; I10 Essential (primary) hypertension; I25.2 Old myocardial infarction; M79.604 Pain in right leg; Z79.84 Long term (current) use of oral hypoglycemic drugs; Z79.82 Long term (current) use of aspirin; Z87.891 Personal history of nicotine dependence; Y83.5 Amputation of limb(s) as the cause of abnormal reaction of the patient, or of later complication, without mention of misadventure at the time of the procedure ==

== ENCOUNTER → 2019-10-09 | Outpatient (CLI) | payer OTHER, BC | LOC: HYPER 08:06 | DX: T81.31XD Disruption of external operation (surgical) wound, not elsewhere classified, subsequent encounter (principal); E11.621 Type 2 diabetes mellitus with foot ulcer; L97.514 Non-pressure chronic ulcer of other part of right foot with necrosis of bone; E11.69 Type 2 diabetes mellitus with other specified complication; M86.671 Other chronic osteomyelitis, right ankle and foot; E11.52 Type 2 diabetes mellitus with diabetic peripheral angiopathy with gangrene; I96 Gangrene, not elsewhere classified; E78.5 Hyperlipidemia, unspecified; I10 Essential (primary) hypertension; I25.2 Old myocardial infarction; Z87.891 Personal history of nicotine dependence; Z95.5 Presence of coronary angioplasty implant and graft; Y83.8 Other surgical procedures as the cause of abnormal reaction of the patient, or of later complication, without mention of misadventure at the time of the procedure ==

== ENCOUNTER → 2019-10-12 | Outpatient (CLI) | payer OTHER, BC | LOC: HYPER 09:23 | DX: T81.31XD Disruption of external operation (surgical) wound, not elsewhere classified, subsequent encounter (principal); E11.621 Type 2 diabetes mellitus with foot ulcer; L97.514 Non-pressure chronic ulcer of other part of right foot with necrosis of bone; E11.69 Type 2 diabetes mellitus with other specified complication; M86.671 Other chronic osteomyelitis, right ankle and foot; E11.52 Type 2 diabetes mellitus with diabetic peripheral angiopathy with gangrene; I96 Gangrene, not elsewhere classified; I10 Essential (primary) hypertension; E78.5 Hyperlipidemia, unspecified; I25.2 Old myocardial infarction; Z87.891 Personal history of nicotine dependence; Z79.82 Long term (current) use of aspirin; Z79.84 Long term (current) use of oral hypoglycemic drugs; Y83.8 Other surgical procedures as the cause of abnormal reaction of the patient, or of later complication, without mention of misadventure at the time of the procedure ==

== ENCOUNTER → 2019-10-13 | Outpatient (CLI) | payer OTHER, BC | LOC: HYPER 08:07 | DX: T81.31XD Disruption of external operation (surgical) wound, not elsewhere classified, subsequent encounter (principal); E11.621 Type 2 diabetes mellitus with foot ulcer; L97.514 Non-pressure chronic ulcer of other part of right foot with necrosis of bone; E11.69 Type 2 diabetes mellitus with other specified complication; M86.671 Other chronic osteomyelitis, right ankle and foot; E11.52 Type 2 diabetes mellitus with diabetic peripheral angiopathy with gangrene; I96 Gangrene, not elsewhere classified; E78.5 Hyperlipidemia, unspecified; I10 Essential (primary) hypertension; I25.2 Old myocardial infarction; Z87.891 Personal history of nicotine dependence; Z95.5 Presence of coronary angioplasty implant and graft; Z95.828 Presence of other vascular implants and grafts; Y83.8 Other surgical procedures as the cause of abnormal reaction of the patient, or of later complication, without mention of misadventure at the time of the procedure ==

== ENCOUNTER → 2019-10-14 | Outpatient (CLI) | payer OTHER, BC | LOC: HYPER 08:11 | DX: T81.30XD Disruption of wound, unspecified, subsequent encounter (principal); E11.621 Type 2 diabetes mellitus with foot ulcer; L97.514 Non-pressure chronic ulcer of other part of right foot with necrosis of bone; E11.69 Type 2 diabetes mellitus with other specified complication; M86.671 Other chronic osteomyelitis, right ankle and foot; E11.52 Type 2 diabetes mellitus with diabetic peripheral angiopathy with gangrene; I96 Gangrene, not elsewhere classified; I10 Essential (primary) hypertension; E78.5 Hyperlipidemia, unspecified; I25.2 Old myocardial infarction; Z95.5 Presence of coronary angioplasty implant and graft; Z86.19 Personal history of other infectious and parasitic diseases; Z87.891 Personal history of nicotine dependence; Y83.8 Other surgical procedures as the cause of abnormal reaction of the patient, or of later complication, without mention of misadventure at the time of the procedure ==

== ENCOUNTER → 2019-10-15 | Outpatient (CLI) | payer OTHER, BC | LOC: HYPER 10:14 | DX: T87.81 Dehiscence of amputation stump (principal); E11.621 Type 2 diabetes mellitus with foot ulcer; L97.521 Non-pressure chronic ulcer of other part of left foot limited to breakdown of skin; L97.514 Non-pressure chronic ulcer of other part of right foot with necrosis of bone; E11.69 Type 2 diabetes mellitus with other specified complication; M86.671 Other chronic osteomyelitis, right ankle and foot; E11.52 Type 2 diabetes mellitus with diabetic peripheral angiopathy with gangrene; I96 Gangrene, not elsewhere classified; E78.5 Hyperlipidemia, unspecified; B19.20 Unspecified viral hepatitis C without hepatic coma; I10 Essential (primary) hypertension; I25.2 Old myocardial infarction; M79.604 Pain in right leg; Z79.84 Long term (current) use of oral hypoglycemic drugs; Z79.82 Long term (current) use of aspirin; Z87.891 Personal history of nicotine dependence; Z95.828 Presence of other vascular implants and grafts; Y83.5 Amputation of limb(s) as the cause of abnormal reaction of the patient, or of later complication, without mention of misadventure at the time of the procedure ==

== ENCOUNTER → 2019-10-16 | Outpatient (CLI) | payer OTHER, BC | LOC: HYPER 07:33 | DX: T87.81 Dehiscence of amputation stump (principal); E11.621 Type 2 diabetes mellitus with foot ulcer; L97.514 Non-pressure chronic ulcer of other part of right foot with necrosis of bone; L97.521 Non-pressure chronic ulcer of other part of left foot limited to breakdown of skin; E11.69 Type 2 diabetes mellitus with other specified complication; M86.671 Other chronic osteomyelitis, right ankle and foot; E11.52 Type 2 diabetes mellitus with diabetic peripheral angiopathy with gangrene; I96 Gangrene, not elsewhere classified; E11.40 Type 2 diabetes mellitus with diabetic neuropathy, unspecified; I10 Essential (primary) hypertension; E78.5 Hyperlipidemia, unspecified; I25.2 Old myocardial infarction; Z87.891 Personal history of nicotine dependence; Z79.84 Long term (current) use of oral hypoglycemic drugs; Z79.82 Long term (current) use of aspirin; Y83.5 Amputation of limb(s) as the cause of abnormal reaction of the patient, or of later complication, without mention of misadventure at the time of the procedure ==

== ENCOUNTER → 2019-10-19 | Outpatient (CLI) | payer OTHER, BC | LOC: HYPER 08:14 | DX: T81.31XD Disruption of external operation (surgical) wound, not elsewhere classified, subsequent encounter (principal); E11.621 Type 2 diabetes mellitus with foot ulcer; L97.514 Non-pressure chronic ulcer of other part of right foot with necrosis of bone; E11.69 Type 2 diabetes mellitus with other specified complication; M86.671 Other chronic osteomyelitis, right ankle and foot; E11.52 Type 2 diabetes mellitus with diabetic peripheral angiopathy with gangrene; I96 Gangrene, not elsewhere classified; E78.5 Hyperlipidemia, unspecified; I25.2 Old myocardial infarction; Z95.5 Presence of coronary angioplasty implant and graft; Z87.891 Personal history of nicotine dependence; Z79.84 Long term (current) use of oral hypoglycemic drugs; Z79.82 Long term (current) use of aspirin; Y83.8 Other surgical procedures as the cause of abnormal reaction of the patient, or of later complication, without mention of misadventure at the time of the procedure ==

== ENCOUNTER → 2019-10-20 | Outpatient (CLI) | payer OTHER, BC | LOC: HYPER 09:06 | DX: T81.31XD Disruption of external operation (surgical) wound, not elsewhere classified, subsequent encounter (principal); E11.621 Type 2 diabetes mellitus with foot ulcer; L97.514 Non-pressure chronic ulcer of other part of right foot with necrosis of bone; E11.69 Type 2 diabetes mellitus with other specified complication; M86.671 Other chronic osteomyelitis, right ankle and foot; E11.52 Type 2 diabetes mellitus with diabetic peripheral angiopathy with gangrene; I96 Gangrene, not elsewhere classified; E78.5 Hyperlipidemia, unspecified; I10 Essential (primary) hypertension; I25.2 Old myocardial infarction; Z87.891 Personal history of nicotine dependence; Z95.828 Presence of other vascular implants and grafts; Y83.8 Other surgical procedures as the cause of abnormal reaction of the patient, or of later complication, without mention of misadventure at the time of the procedure ==

== ENCOUNTER → 2019-10-21 | Outpatient (CLI) | payer OTHER, BC | LOC: HYPER 08:06 | DX: T87.81 Dehiscence of amputation stump (principal); E11.621 Type 2 diabetes mellitus with foot ulcer; L97.514 Non-pressure chronic ulcer of other part of right foot with necrosis of bone; E11.69 Type 2 diabetes mellitus with other specified complication; M86.671 Other chronic osteomyelitis, right ankle and foot; E11.52 Type 2 diabetes mellitus with diabetic peripheral angiopathy with gangrene; I96 Gangrene, not elsewhere classified; B19.20 Unspecified viral hepatitis C without hepatic coma; E78.5 Hyperlipidemia, unspecified; M79.604 Pain in right leg; I10 Essential (primary) hypertension; I25.5 Ischemic cardiomyopathy; Z79.84 Long term (current) use of oral hypoglycemic drugs; Z79.82 Long term (current) use of aspirin; Z87.891 Personal history of nicotine dependence; Z95.5 Presence of coronary angioplasty implant and graft; Z95.828 Presence of other vascular implants and grafts; Y83.5 Amputation of limb(s) as the cause of abnormal reaction of the patient, or of later complication, without mention of misadventure at the time of the procedure ==

== ENCOUNTER → 2019-10-22 | Outpatient (CLI) | payer OTHER, BC | LOC: HYPER 08:10 | DX: T81.31XD Disruption of external operation (surgical) wound, not elsewhere classified, subsequent encounter (principal); E11.621 Type 2 diabetes mellitus with foot ulcer; L97.514 Non-pressure chronic ulcer of other part of right foot with necrosis of bone; E11.69 Type 2 diabetes mellitus with other specified complication; M86.671 Other chronic osteomyelitis, right ankle and foot; E11.52 Type 2 diabetes mellitus with diabetic peripheral angiopathy with gangrene; I96 Gangrene, not elsewhere classified; E78.5 Hyperlipidemia, unspecified; I25.2 Old myocardial infarction; I10 Essential (primary) hypertension; Z87.891 Personal history of nicotine dependence; Z95.5 Presence of coronary angioplasty implant and graft; Z95.828 Presence of other vascular implants and grafts; Y83.8 Other surgical procedures as the cause of abnormal reaction of the patient, or of later complication, without mention of misadventure at the time of the procedure ==

== ENCOUNTER → 2019-10-23 | Outpatient (CLI) | payer OTHER, BC | LOC: HYPER 08:14 | DX: T81.31XD Disruption of external operation (surgical) wound, not elsewhere classified, subsequent encounter (principal); E11.621 Type 2 diabetes mellitus with foot ulcer; L97.514 Non-pressure chronic ulcer of other part of right foot with necrosis of bone; E11.69 Type 2 diabetes mellitus with other specified complication; M86.671 Other chronic osteomyelitis, right ankle and foot; E11.52 Type 2 diabetes mellitus with diabetic peripheral angiopathy with gangrene; I96 Gangrene, not elsewhere classified; I10 Essential (primary) hypertension; E78.5 Hyperlipidemia, unspecified; I25.2 Old myocardial infarction; Z95.5 Presence of coronary angioplasty implant and graft; Z87.891 Personal history of nicotine dependence; Z79.84 Long term (current) use of oral hypoglycemic drugs; Z79.82 Long term (current) use of aspirin; Y83.8 Other surgical procedures as the cause of abnormal reaction of the patient, or of later complication, without mention of misadventure at the time of the procedure ==

== ENCOUNTER → 2019-10-26 | Outpatient (CLI) | payer OTHER, BC | LOC: HYPER 09:19 | DX: T81.31XD Disruption of external operation (surgical) wound, not elsewhere classified, subsequent encounter (principal); E11.621 Type 2 diabetes mellitus with foot ulcer; L97.514 Non-pressure chronic ulcer of other part of right foot with necrosis of bone; E11.69 Type 2 diabetes mellitus with other specified complication; M86.671 Other chronic osteomyelitis, right ankle and foot; E11.52 Type 2 diabetes mellitus with diabetic peripheral angiopathy with gangrene; I96 Gangrene, not elsewhere classified; E78.5 Hyperlipidemia, unspecified; I10 Essential (primary) hypertension; I25.2 Old myocardial infarction; Z95.5 Presence of coronary angioplasty implant and graft; Z87.891 Personal history of nicotine dependence; Z79.84 Long term (current) use of oral hypoglycemic drugs; Y83.8 Other surgical procedures as the cause of abnormal reaction of the patient, or of later complication, without mention of misadventure at the time of the procedure ==

== ENCOUNTER → 2019-10-27 | Outpatient (CLI) | payer OTHER, BC | LOC: HYPER 08:22 | DX: T81.31XD Disruption of external operation (surgical) wound, not elsewhere classified, subsequent encounter (principal); E11.621 Type 2 diabetes mellitus with foot ulcer; L97.514 Non-pressure chronic ulcer of other part of right foot with necrosis of bone; E11.69 Type 2 diabetes mellitus with other specified complication; M86.671 Other chronic osteomyelitis, right ankle and foot; E11.52 Type 2 diabetes mellitus with diabetic peripheral angiopathy with gangrene; I96 Gangrene, not elsewhere classified; E78.5 Hyperlipidemia, unspecified; I10 Essential (primary) hypertension; I25.2 Old myocardial infarction; Z87.891 Personal history of nicotine dependence; Z95.5 Presence of coronary angioplasty implant and graft; Z95.828 Presence of other vascular implants and grafts; Y83.8 Other surgical procedures as the cause of abnormal reaction of the patient, or of later complication, without mention of misadventure at the time of the procedure ==

== ENCOUNTER → 2019-10-28 | Outpatient (CLI) | payer OTHER, BC | LOC: HYPER 08:41 | DX: T81.31XD Disruption of external operation (surgical) wound, not elsewhere classified, subsequent encounter (principal); E11.621 Type 2 diabetes mellitus with foot ulcer; L97.514 Non-pressure chronic ulcer of other part of right foot with necrosis of bone; E11.69 Type 2 diabetes mellitus with other specified complication; M86.671 Other chronic osteomyelitis, right ankle and foot; E11.52 Type 2 diabetes mellitus with diabetic peripheral angiopathy with gangrene; I96 Gangrene, not elsewhere classified; E78.5 Hyperlipidemia, unspecified; I10 Essential (primary) hypertension; I25.2 Old myocardial infarction; Z95.5 Presence of coronary angioplasty implant and graft; Z87.891 Personal history of nicotine dependence; Z95.828 Presence of other vascular implants and grafts; Y83.8 Other surgical procedures as the cause of abnormal reaction of the patient, or of later complication, without mention of misadventure at the time of the procedure ==

== ENCOUNTER → 2019-10-29 | Outpatient (CLI) | payer OTHER, BC | LOC: HYPER 08:07 | DX: T87.81 Dehiscence of amputation stump (principal); E11.621 Type 2 diabetes mellitus with foot ulcer; L97.514 Non-pressure chronic ulcer of other part of right foot with necrosis of bone; E11.69 Type 2 diabetes mellitus with other specified complication; M86.671 Other chronic osteomyelitis, right ankle and foot; E11.52 Type 2 diabetes mellitus with diabetic peripheral angiopathy with gangrene; I96 Gangrene, not elsewhere classified; B19.20 Unspecified viral hepatitis C without hepatic coma; E78.5 Hyperlipidemia, unspecified; I10 Essential (primary) hypertension; I25.2 Old myocardial infarction; M79.604 Pain in right leg; Z79.84 Long term (current) use of oral hypoglycemic drugs; Z79.82 Long term (current) use of aspirin; Z87.891 Personal history of nicotine dependence; Z95.5 Presence of coronary angioplasty implant and graft; Z95.828 Presence of other vascular implants and grafts; Y83.5 Amputation of limb(s) as the cause of abnormal reaction of the patient, or of later complication, without mention of misadventure at the time of the procedure ==

== ENCOUNTER → 2019-10-30 | Outpatient (CLI) | payer OTHER, BC ==
[~2019-10-30] MED LIST changes: +BENICAR40 MG PO; +FUROSEMIDE 40 M40 MG PO; +KLOR-CON M2020 MEQ PO; +METFORMIN HCL1000 M1 PO
== END ==
LOC: SJCVC 11:35
DX: R94.31 Abnormal electrocardiogram [ECG] [EKG] (principal); I25.10 Atherosclerotic heart disease of native coronary artery without angina pectoris; E11.9 Type 2 diabetes mellitus without complications; I73.9 Peripheral vascular disease, unspecified; E78.00 Pure hypercholesterolemia, unspecified; I10 Essential (primary) hypertension; R94.39 Abnormal result of other cardiovascular function study; R06.02 Shortness of breath; I25.5 Ischemic cardiomyopathy; Z95.1 Presence of aortocoronary bypass graft

== ENCOUNTER → 2019-10-30 | Outpatient (CLI) | payer OTHER, BC ==
[~2019-10-30] MED LIST changes: -BENICAR40 MG PO; -FUROSEMIDE 40 M40 MG PO; -KLOR-CON M2020 MEQ PO; -METFORMIN HCL1000 M1 PO
== END ==
LOC: HYPER 08:04
DX: T81.31XD Disruption of external operation (surgical) wound, not elsewhere classified, subsequent encounter (principal); E11.621 Type 2 diabetes mellitus with foot ulcer; L97.514 Non-pressure chronic ulcer of other part of right foot with necrosis of bone; E11.69 Type 2 diabetes mellitus with other specified complication; M86.671 Other chronic osteomyelitis, right ankle and foot; E11.52 Type 2 diabetes mellitus with diabetic peripheral angiopathy with gangrene; I96 Gangrene, not elsewhere classified; E78.5 Hyperlipidemia, unspecified; I10 Essential (primary) hypertension; I25.2 Old myocardial infarction; Z87.891 Personal history of nicotine dependence; Z95.5 Presence of coronary angioplasty implant and graft; Z95.828 Presence of other vascular implants and grafts; Y83.8 Other surgical procedures as the cause of abnormal reaction of the patient, or of later complication, without mention of misadventure at the time of the procedure

== ENCOUNTER → 2019-11-03 | Outpatient (CLI) | payer OTHER, BC ==
[~2019-11-03] MED LIST changes: +BENICAR40 MG PO; +FUROSEMIDE 40 M40 MG PO; +KLOR-CON M2020 MEQ PO; +METFORMIN HCL1000 M1 PO
== END ==
LOC: HYPER 10:32
DX: T81.31XD Disruption of external operation (surgical) wound, not elsewhere classified, subsequent encounter (principal); E11.621 Type 2 diabetes mellitus with foot ulcer; L97.514 Non-pressure chronic ulcer of other part of right foot with necrosis of bone; E11.69 Type 2 diabetes mellitus with other specified complication; M86.671 Other chronic osteomyelitis, right ankle and foot; E11.52 Type 2 diabetes mellitus with diabetic peripheral angiopathy with gangrene; I96 Gangrene, not elsewhere classified; E78.5 Hyperlipidemia, unspecified; I10 Essential (primary) hypertension; I25.2 Old myocardial infarction; Z87.891 Personal history of nicotine dependence; Z95.5 Presence of coronary angioplasty implant and graft; Z95.828 Presence of other vascular implants and grafts; Y83.8 Other surgical procedures as the cause of abnormal reaction of the patient, or of later complication, without mention of misadventure at the time of the procedure

== ENCOUNTER → 2019-11-04 | Outpatient (CLI) | payer OTHER, BC | LOC: HYPER 11:17 | DX: T81.31XD Disruption of external operation (surgical) wound, not elsewhere classified, subsequent encounter (principal); E11.621 Type 2 diabetes mellitus with foot ulcer; L97.514 Non-pressure chronic ulcer of other part of right foot with necrosis of bone; E11.69 Type 2 diabetes mellitus with other specified complication; M86.671 Other chronic osteomyelitis, right ankle and foot; E11.52 Type 2 diabetes mellitus with diabetic peripheral angiopathy with gangrene; I96 Gangrene, not elsewhere classified; E78.5 Hyperlipidemia, unspecified; I10 Essential (primary) hypertension; I25.2 Old myocardial infarction; Z87.891 Personal history of nicotine dependence; Z95.5 Presence of coronary angioplasty implant and graft; Z95.828 Presence of other vascular implants and grafts; Y83.8 Other surgical procedures as the cause of abnormal reaction of the patient, or of later complication, without mention of misadventure at the time of the procedure ==

== ENCOUNTER 2019-11-05 10:34 | Outpatient (CLI) | payer OTHER, BC ==
[2019-11-05] VITALS (9 sets, daily range): BP systolic 136–181; BP diastolic 69–101
[~2019-11-05] VITALS: Ht 165.1 cm; Wt 74.9 kg
[~2019-11-05 10:34] MED LIST changes: -BENICAR40 MG PO; -FUROSEMIDE 40 M40 MG PO; -KLOR-CON M2020 MEQ PO; -METFORMIN HCL1000 M1 PO
[2019-11-05 11:26] LABS: HEMATOCRIT 36.5 % (42.0-52.0); HEMOGLOBIN 12.5 gm/dL (14.0-18.0); MCH 28.5 pg (26.0-34.0); MCHC 34.1 g/dL (28.0-37.0); MCV 83.6 fL (80.0-100.0); RBC 4.36 mil/uL (4.50-6.00); RDW 14.9 % (10.5-14.5); WBC 6.8 thou/uL (4.0-11.0)
[2019-11-05 11:35] LABS: CREATININE 1.4 mg/dL (0.7-1.3); POTASSIUM 4.5 mmol/L (3.5-5.1)
[2019-11-05] MEDS ORDERED: FUROSEMIDE 40 M40 MG PO ×2 (11:46)
[2019-11-05] MEDS ORDERED: METFORMIN HCL1000 M1 PO ×2 (11:47)
[2019-11-05] MEDS ORDERED: KLOR-CON M2020 MEQ PO ×2 (11:49)
[2019-11-05] MEDS ORDERED: BENICAR40 MG PO ×2 (11:51)
[2019-11-05] MEDS ORDERED: BYSTOLIC10 MG PO ×2 (11:52)
--- NOTE | 2019-11-05 18:03 | NUR ---
16:45 PT. ONTO UNIT PLACED IN HIS BED AT THIS TIME. VERY SLEEPY, AROUSES TO VERBAL AND DENIES ANY CHEST PAIN, NO SOB. RIGHT GROIN SITE IS C,D,I WITH NO SIGN'S OF A HEMATOMA, NONE PALPATED. DISTAL PULSE OF ETREMITY IS PALPABLE. NO MOTTLING ON LEG, COLOR NORMAL FOR ETHNICITY, WARM TO TOUCH. NO PAIN MEDICATION REQUIRED. VITAL SIGN'S ARE ON AND WNL. WILL CONTINUE TO MONITOR GROIN SITE CLOSELY.
--- NOTE | 2019-11-05 18:06 | NUR ---
PT. EATING HIS DINNER NOW, DENIES ANY CHEST PAIN NOR ANY SOB. "LOOKING FORWARD TO GOING HOME TONIGHT". BLOOD PRESSURES WNL. RIGHT GROIN SITE IS C,D,I, NO SIGN'S OF A HEMATOMA, NONE TO TOUCH NOR SITE.
[2019-11-06 00:21] VITALS: BP 165/86
[2019-11-06 03:35] VITALS: BP 129/79
--- NOTE | 2019-11-06 04:29 | NUR ---
SLEPT MOST OF SHIFT. BP ELEVATED LAST NOC. HYDRALIZINE USED X2 PRN AND IS 129/79 THIS AM. PATIENT COMPLAINTS OF HEADACHE AND STUFFINESS LAST NOC, TYLENOL AND FLONASE GIVEN WITH NOTED RELIEF. TURNS SELF IN BED, AND UP WITH SBA X1. WORKING ON GOALS AND PLAN OF CARE FOR NOC. PROGRESSING SLOWLY TOWARDS DISCHARGE GOALS. CONTINUE TO ASSES CLOSELY.
[2019-11-06 08:15] VITALS: BP 141/84
--- NOTE | 2019-11-06 08:19 | NUR ---
ASSUMED CARE OF PT AT SHIFT CHANGE, REPORTS OF HEADACHE THROUGHOUT THE NIGHT PER NIGHT NURSE AND DAY ENGINEERING DOCUMENTATION SPECIALIST. GIVEN TYLENOL AND HE'S GOT FULL RELIEF. STATES HE SHOULD BE DISCHARGED TODAY, ANXIOUS TO BE GONE. EDUCATION GIVEN ON D/C PROCESS AND ENCOURAGED HIM TO USE CALL LIGHT FOR ANY NEEDS. NOTED STRONGER PAIN MED FOR ANY PAIN AND HE DECLINES NEED FOR IT. SEE SEPARATE INTERVENTIONS FOR ASSESSMENTS. HAD HYPERBARIC APPT TODAY PER REPORT FOR RECENT TOE AMPUTATION (JUNE).WILL FIND PHONE NUMBER FOR HIM TO CALL TO UPDATE THEM. NOTED HIGH BP'S AND WILL ADM PRN MEDS WHEN NEEDED. STATES HE DIDN'T SLEEP FROM 0300 ON. WILL CONTINUE TO MONITOR
[2019-11-06 09:36] VITALS: BP 141/84
--- NOTE | 2019-11-09 14:17 | CATHLAB ---
[facility] [place] [address] INVASIVE PROCEDURE REPORT Name: MARQUISE SUJATHA Room #: DEP EWELINASvaannah Walker#: [id number] Admission: 11/05/19 Attend Phys: Clifford Crawford MD Discharge: 11/06/19 Date of : 52 Report #: [id number] THIS REPORT FOR: cc: Demetrice Chaparro Diane C. DO Mancuso, Gerald M. MD [facility] ~ APPROVED REPORT Study performed: 11/05/2019 14:42:43 Patient Details Patient Status: Out-Patient Room #: The patient is a 69 year-old male Event Personnel Judah Trammell Ceramics Teacher, Osiel York RN RN, Molly Walton RTR, Jonathon Darling Roberta Monitor Procedures Performed Left Heart Cath Coronaries, Bypass Grafts [id number] CCORCABG 69911 Initial Mod Sed Same Phys/QHP Gr5y 966433 53483 Mod Sed Same Phys/QHP Ea 949706 Hemostasis w/ Mynx Indication Chest pain Procedure Narrative A SHEATH BRITE-TIP 6F X 11CM ([id number]) sheath was inserted into the RFA 6F^. Coronary angiography was performed using coronary diagnostic catheters. The right coronary system was accessed and visualized with a JR4 catheter. The left coronary system was accessed and visualized with a JL4 catheter. The left ventricle was accessed and visualized with a STR PIG catheter. Left ventriculogram was performed in 30 degree projection. There was no hematoma. The following were grafts imaged. MEJÍA to LAD, SVG to OM 1 OM2 AND Diag. SVG to PDA. All open. Intraoperative Conscious Sedation Sedation start time: 1456 Case end Time: 1535 Fentanyl 50 mcg Versed 1.0 mg Fluoro Time: 16.82 minutes Dose: DAP 41448.60 cGycm2 623 mGy [facility] [place] [address] INVASIVE PROCEDURE REPORT Name: MARQUISE SUJATHA Room #: BLANCA Walker#: [id number] Admission: 11/05/19 Attend Phys: Clifford Crawford, Discharge: 11/06/19 Date of : 52 Report #: [id number] Contrast Type and Amount: Omnipaque 150ml Hemodynamics The aortic pressure is 187/99 mmHg with a mean of 126 mmHg. The left ventricular pressure is 191/18 mmHg with a mean of mmHg. The left ventricular end diastolic pressure is 29 mmHg. PCI Technique Lesion Percutaneous coronary intervention was performed on the Unspecified. PCI Technique Lesion 2 Percutaneous Coronary Intervention was performed on the Unspecified. Conclusion 1. Normal left ventricular size and mild to moderate global hypokinesis EF 40 to 45% #2 small left main giving rise to LAD which occludes in the mid vessel left main diffusely diseased moderate nature #3 LAD is moderate diffuse disease that occludes in the mid vessel 680% proximal lesion #4 circumflex OM is occluded in the OM and bypass via graft. #5 MEJÍA to LAD is intact mildly diseased relatively small but filling a small and diffusely diseased LAD no occlusive disease #6 mi'kmaq right occluded proximally #7 there appears to be a triple sequential graft that is actually well preserved filling a small diagonal OM1 OM 2 system no indication for intervention #8 SVG to PDA is intact again filling the diffusely diseased PDA MARGARITA system but the graft is widely patent. Recommendations and plan: Continue aggressive risk factor modification. No indication for coronary intervention. Follow discharge protocol. <ELECTRONICALLY SIGNED> By: Judah Trammell MD, FACC 11/09/19 1415 141 1415 Judah Trammell MD, FACC /INF
== END 2019-11-06 10:45 | disposition home or self-care (01) ==
LOC: CATH 10:34 → 2N 16:42 → CATH 11-06 10:45
PROVIDERS: Internal Medicine Cardiovascular Disease
DX: R07.9 Chest pain, unspecified (principal); I25.810 Atherosclerosis of coronary artery bypass graft(s) without angina pectoris; I70.213 Atherosclerosis of native arteries of extremities with intermittent claudication, bilateral legs; I70.248 Atherosclerosis of native arteries of left leg with ulceration of other part of lower leg; I70.238 Atherosclerosis of native arteries of right leg with ulceration of other part of lower leg; L97.819 Non-pressure chronic ulcer of other part of right lower leg with unspecified severity; L97.829 Non-pressure chronic ulcer of other part of left lower leg with unspecified severity; I70.1 Atherosclerosis of renal artery; I10 Essential (primary) hypertension; E11.9 Type 2 diabetes mellitus without complications; I25.2 Old myocardial infarction; K75.9 Inflammatory liver disease, unspecified; J44.9 Chronic obstructive pulmonary disease, unspecified; I42.9 Cardiomyopathy, unspecified; E78.5 Hyperlipidemia, unspecified; Z98.890 Other specified postprocedural states; Z79.899 Other long term (current) drug therapy; Z79.4 Long term (current) use of insulin; Z87.891 Personal history of nicotine dependence; Z95.1 Presence of aortocoronary bypass graft
CPT/HCPCS: 10081

== ENCOUNTER → 2019-11-05 | Outpatient (CLI) | payer OTHER, BC | LOC: HYPER 08:18 | DX: T81.31XD Disruption of external operation (surgical) wound, not elsewhere classified, subsequent encounter (principal); E11.621 Type 2 diabetes mellitus with foot ulcer; L97.514 Non-pressure chronic ulcer of other part of right foot with necrosis of bone; E11.69 Type 2 diabetes mellitus with other specified complication; M86.671 Other chronic osteomyelitis, right ankle and foot; E11.52 Type 2 diabetes mellitus with diabetic peripheral angiopathy with gangrene; I96 Gangrene, not elsewhere classified; E78.5 Hyperlipidemia, unspecified; I10 Essential (primary) hypertension; I25.2 Old myocardial infarction; Z87.891 Personal history of nicotine dependence; Z95.5 Presence of coronary angioplasty implant and graft; Z95.828 Presence of other vascular implants and grafts; Y83.8 Other surgical procedures as the cause of abnormal reaction of the patient, or of later complication, without mention of misadventure at the time of the procedure ==

== ENCOUNTER → 2019-11-11 | Outpatient (CLI) | payer OTHER, BC ==
[~2019-11-11] MED LIST changes: +BENICAR40 MG PO; +FUROSEMIDE 40 M40 MG PO; +KLOR-CON M2020 MEQ PO; +METFORMIN HCL1000 M1 PO
== END ==
LOC: HYPER 08:32
DX: T87.81 Dehiscence of amputation stump (principal); E11.621 Type 2 diabetes mellitus with foot ulcer; L97.514 Non-pressure chronic ulcer of other part of right foot with necrosis of bone; E11.69 Type 2 diabetes mellitus with other specified complication; M86.671 Other chronic osteomyelitis, right ankle and foot; E11.52 Type 2 diabetes mellitus with diabetic peripheral angiopathy with gangrene; I96 Gangrene, not elsewhere classified; B19.20 Unspecified viral hepatitis C without hepatic coma; E78.5 Hyperlipidemia, unspecified; I10 Essential (primary) hypertension; I25.5 Ischemic cardiomyopathy; M79.604 Pain in right leg; Z79.84 Long term (current) use of oral hypoglycemic drugs; Z79.82 Long term (current) use of aspirin; Z87.891 Personal history of nicotine dependence; Z95.5 Presence of coronary angioplasty implant and graft; Z95.828 Presence of other vascular implants and grafts; Y83.8 Other surgical procedures as the cause of abnormal reaction of the patient, or of later complication, without mention of misadventure at the time of the procedure

== ENCOUNTER → 2019-11-12 | Outpatient (CLI) | payer OTHER, BC | LOC: HYPER 07:56 | DX: T81.31XD Disruption of external operation (surgical) wound, not elsewhere classified, subsequent encounter (principal); E11.621 Type 2 diabetes mellitus with foot ulcer; L97.514 Non-pressure chronic ulcer of other part of right foot with necrosis of bone; E11.69 Type 2 diabetes mellitus with other specified complication; M86.671 Other chronic osteomyelitis, right ankle and foot; E11.52 Type 2 diabetes mellitus with diabetic peripheral angiopathy with gangrene; I96 Gangrene, not elsewhere classified; E78.5 Hyperlipidemia, unspecified; I10 Essential (primary) hypertension; I25.5 Ischemic cardiomyopathy; Z87.891 Personal history of nicotine dependence; Z95.5 Presence of coronary angioplasty implant and graft; Z95.828 Presence of other vascular implants and grafts; Y83.8 Other surgical procedures as the cause of abnormal reaction of the patient, or of later complication, without mention of misadventure at the time of the procedure ==

== ENCOUNTER → 2019-11-13 | Outpatient (CLI) | payer OTHER, BC | LOC: HYPER 08:39 | DX: T81.31XD Disruption of external operation (surgical) wound, not elsewhere classified, subsequent encounter (principal); E11.621 Type 2 diabetes mellitus with foot ulcer; L97.514 Non-pressure chronic ulcer of other part of right foot with necrosis of bone; E11.69 Type 2 diabetes mellitus with other specified complication; M86.671 Other chronic osteomyelitis, right ankle and foot; E11.52 Type 2 diabetes mellitus with diabetic peripheral angiopathy with gangrene; I96 Gangrene, not elsewhere classified; I10 Essential (primary) hypertension; E78.5 Hyperlipidemia, unspecified; I25.2 Old myocardial infarction; Z95.5 Presence of coronary angioplasty implant and graft; Z87.891 Personal history of nicotine dependence; Z79.84 Long term (current) use of oral hypoglycemic drugs; Z79.82 Long term (current) use of aspirin; Y83.8 Other surgical procedures as the cause of abnormal reaction of the patient, or of later complication, without mention of misadventure at the time of the procedure ==

== ENCOUNTER → 2019-11-16 | Outpatient (CLI) | payer OTHER, BC ==
[~2019-11-16] MED LIST changes: +AMLODIPINE BESY10 MG PO; +EDARBI80 MG PO; +OLMESARTAN MEDO40 MG PO; +PLAVIX 75 MG TA75 MG PO; +SPIRONOLACTONE25 MG PO
== END ==
LOC: HYPER 09:51
PROVIDERS: ATTEND Emergency Medicine
DX: T81.31XD Disruption of external operation (surgical) wound, not elsewhere classified, subsequent encounter (principal); E11.621 Type 2 diabetes mellitus with foot ulcer; L97.514 Non-pressure chronic ulcer of other part of right foot with necrosis of bone; E11.69 Type 2 diabetes mellitus with other specified complication; M86.671 Other chronic osteomyelitis, right ankle and foot; E11.52 Type 2 diabetes mellitus with diabetic peripheral angiopathy with gangrene; I96 Gangrene, not elsewhere classified; E78.5 Hyperlipidemia, unspecified; I10 Essential (primary) hypertension; I25.5 Ischemic cardiomyopathy; Z87.891 Personal history of nicotine dependence; Z95.1 Presence of aortocoronary bypass graft; Z95.828 Presence of other vascular implants and grafts; Y83.8 Other surgical procedures as the cause of abnormal reaction of the patient, or of later complication, without mention of misadventure at the time of the procedure

== ENCOUNTER → 2019-11-18 | Outpatient (CLI) | payer OTHER, BC | LOC: HYPER 11:54 | PROVIDERS: ATTEND Emergency Medicine | DX: T81.31XD Disruption of external operation (surgical) wound, not elsewhere classified, subsequent encounter (principal); E11.621 Type 2 diabetes mellitus with foot ulcer; L97.514 Non-pressure chronic ulcer of other part of right foot with necrosis of bone; E11.69 Type 2 diabetes mellitus with other specified complication; M86.671 Other chronic osteomyelitis, right ankle and foot; E11.52 Type 2 diabetes mellitus with diabetic peripheral angiopathy with gangrene; I96 Gangrene, not elsewhere classified; E78.5 Hyperlipidemia, unspecified; I10 Essential (primary) hypertension; I25.2 Old myocardial infarction; Z87.891 Personal history of nicotine dependence; Z95.5 Presence of coronary angioplasty implant and graft; Z95.828 Presence of other vascular implants and grafts; Y83.8 Other surgical procedures as the cause of abnormal reaction of the patient, or of later complication, without mention of misadventure at the time of the procedure ==

== ENCOUNTER → 2019-11-19 | Outpatient (CLI) | payer OTHER, BC | LOC: HYPER 09:30 | PROVIDERS: ATTEND Emergency Medicine | DX: T81.31XD Disruption of external operation (surgical) wound, not elsewhere classified, subsequent encounter (principal); E11.621 Type 2 diabetes mellitus with foot ulcer; L97.514 Non-pressure chronic ulcer of other part of right foot with necrosis of bone; E11.69 Type 2 diabetes mellitus with other specified complication; M86.671 Other chronic osteomyelitis, right ankle and foot; E11.52 Type 2 diabetes mellitus with diabetic peripheral angiopathy with gangrene; I96 Gangrene, not elsewhere classified; E78.5 Hyperlipidemia, unspecified; I10 Essential (primary) hypertension; I25.2 Old myocardial infarction; Z87.891 Personal history of nicotine dependence; Z95.5 Presence of coronary angioplasty implant and graft; Z95.828 Presence of other vascular implants and grafts; Y83.8 Other surgical procedures as the cause of abnormal reaction of the patient, or of later complication, without mention of misadventure at the time of the procedure ==

== ENCOUNTER → 2019-12-09 | Day surgery (SDC) | payer OTHER, BC | END | disposition home or self-care (01) | LOC: OR 10:33 | DX: S91.301A Unspecified open wound, right foot, initial encounter (principal); I10 Essential (primary) hypertension; E11.9 Type 2 diabetes mellitus without complications; I25.2 Old myocardial infarction; I73.9 Peripheral vascular disease, unspecified; B19.20 Unspecified viral hepatitis C without hepatic coma; F32.9 Major depressive disorder, single episode, unspecified; F41.9 Anxiety disorder, unspecified; Z98.890 Other specified postprocedural states; Z79.899 Other long term (current) drug therapy; Z87.891 Personal history of nicotine dependence; Z95.1 Presence of aortocoronary bypass graft; X58.XXXA Exposure to other specified factors, initial encounter; Y93.89 Activity, other specified; Y92.89 Other specified places as the place of occurrence of the external cause; Y99.8 Other external cause status ==

== ENCOUNTER 2019-12-17 13:06 | Emergency (ER) | payer OTHER, BC ==
[~2019-12-17] VITALS: Ht 165.1 cm; Wt 66.2 kg
[2019-12-17 14:56] LABS: CALCIUM 8.9 mg/dL (8.5-10.1); CREATININE 1.6 mg/dL (0.7-1.3); POTASSIUM 4.5 mmol/L (3.5-5.1)
[2019-12-17 15:02] LABS: ALBUMIN 3.5 g/dL (3.4-5.0); TOTAL BILIRUBIN 0.4 mg/dL (0.2-1.0); TOTAL PROTEIN 7.8 g/dL (6.4-8.2)
[2019-12-17 15:13] LABS: ABSOLUTE NEUTROPHILS 6.3 thou/uL (1.4-8.2); BASOPHILS 0.7 % (0.0-2.0); HEMATOCRIT 34.4 % (42.0-52.0); HEMOGLOBIN 11.8 gm/dL (14.0-18.0); LYMPHOCYTES 13.7 % (24.0-44.0); MCH 28.5 pg (26.0-34.0); MCHC 34.2 g/dL (28.0-37.0); MCV 83.3 fL (80.0-100.0); MONOCYTES 5.7 % (1.0-8.0); PLATELET COUNT 303 thou/uL (150-400); POLYS 74.9 % (36.0-66.0); RBC 4.14 mil/uL (4.50-6.00); RDW 14.8 % (10.5-14.5); WBC 8.4 thou/uL (4.0-11.0)
[2019-12-17] MEDS ORDERED: CIPROFLOXACIN750 MG PO (16:04)
[2019-12-17 17:10] VITALS: BP 119/65
== END 2019-12-17 17:10 | disposition still patient (30) ==
LOC: ER 13:06
PROVIDERS: Physician Assistant
DX: T81.30XA Disruption of wound, unspecified, initial encounter (principal); E11.9 Type 2 diabetes mellitus without complications; I10 Essential (primary) hypertension; F32.9 Major depressive disorder, single episode, unspecified; F41.9 Anxiety disorder, unspecified; E11.51 Type 2 diabetes mellitus with diabetic peripheral angiopathy without gangrene; Z95.5 Presence of coronary angioplasty implant and graft; Z79.899 Other long term (current) drug therapy; Z79.82 Long term (current) use of aspirin; Z88.8 Allergy status to other drugs, medicaments and biological substances; Y83.8 Other surgical procedures as the cause of abnormal reaction of the patient, or of later complication, without mention of misadventure at the time of the procedure; Y92.89 Other specified places as the place of occurrence of the external cause

== ENCOUNTER → 2019-12-22 | Outpatient (CLI) | payer OTHER, BC ==
[~2019-12-22] MED LIST changes: +CIPROFLOXACIN750 MG PO
[2019-12-22 16:25] VITALS: BP 120/73
--- NOTE | 2019-12-22 18:31 | NUR ---
HERE FOR 1ST DOSE VANCO FOLLOWING PICC LINE PLACEMENT BY VASCULAR ACCESS NURSE. PT TOLERATED INFUSION WITHOUT INCIDENT, NO S/S REACTION. [employer] HOME INFUSION One Touch EMR HAS SET UP APPT WITH PT FOR NOON TOMORROW FOR TEACHING AND MEDICATION DELIVERY. PT HAS HAD A PICC AND HOME INFUSIONS BEFORE. VERBALIZES GOOD UNDERSTANDING OF PLAN. DISMISSED IN STABLE CONDITION.
== END ==
LOC: OPONC 15:39
PROVIDERS: ATTEND Specialist
DX: I96 Gangrene, not elsewhere classified (principal)
CPT/HCPCS: 27000; 95000; 95001

== ENCOUNTER 2019-12-30 06:10 | Emergency (ER) | payer OTHER, BC ==
[~2019-12-30] VITALS: Ht 165.1 cm; Wt 65.8 kg
[2019-12-30 06:44] LABS: BASOPHILS 0.6 % (0.0-2.0); EOSINOPHILS 5.7 % (0.0-3.0); HEMATOCRIT 32.8 % (42.0-52.0); HEMOGLOBIN 11.3 gm/dL (14.0-18.0); LYMPHOCYTES 8.9 % (24.0-44.0); MCH 28.8 pg (26.0-34.0); MCHC 34.5 g/dL (28.0-37.0); MCV 83.4 fL (80.0-100.0); MONOCYTES 7.8 % (1.0-8.0); PLATELET COUNT 266 thou/uL (150-400); RBC 3.94 mil/uL (4.50-6.00); RDW 14.7 % (10.5-14.5); WBC 7.8 thou/uL (4.0-11.0)
[2019-12-30 08:10] LABS: CALCIUM 9.2 mg/dL (8.5-10.1); CREATININE 2.3 mg/dL (0.7-1.3); POTASSIUM 3.9 mmol/L (3.5-5.1)
[2019-12-30 08:47] VITALS: BP 154/85
== END 2019-12-30 08:49 | disposition home or self-care (01) ==
LOC: ER 06:10
PROVIDERS: Emergency Medicine
DX: Z71.1 Person with feared health complaint in whom no diagnosis is made (principal); R79.9 Abnormal finding of blood chemistry, unspecified; I10 Essential (primary) hypertension; E11.9 Type 2 diabetes mellitus without complications; Z87.891 Personal history of nicotine dependence; Z79.82 Long term (current) use of aspirin; Z79.01 Long term (current) use of anticoagulants; Z79.899 Other long term (current) drug therapy; Z88.8 Allergy status to other drugs, medicaments and biological substances

== ENCOUNTER → 2019-12-31 | Outpatient (CLI) | payer OTHER, BC | LOC: HYPER 09:25 | PROVIDERS: ATTEND Emergency Medicine | DX: T87.81 Dehiscence of amputation stump (principal); E11.621 Type 2 diabetes mellitus with foot ulcer; L97.514 Non-pressure chronic ulcer of other part of right foot with necrosis of bone; E11.69 Type 2 diabetes mellitus with other specified complication; M86.671 Other chronic osteomyelitis, right ankle and foot; E11.52 Type 2 diabetes mellitus with diabetic peripheral angiopathy with gangrene; I96 Gangrene, not elsewhere classified; E78.5 Hyperlipidemia, unspecified; B19.20 Unspecified viral hepatitis C without hepatic coma; I10 Essential (primary) hypertension; I25.2 Old myocardial infarction; M79.604 Pain in right leg; Z95.5 Presence of coronary angioplasty implant and graft; Z87.891 Personal history of nicotine dependence; Z79.82 Long term (current) use of aspirin; Z79.84 Long term (current) use of oral hypoglycemic drugs; Z95.828 Presence of other vascular implants and grafts; Y83.5 Amputation of limb(s) as the cause of abnormal reaction of the patient, or of later complication, without mention of misadventure at the time of the procedure ==

== ENCOUNTER → 2020-01-28 | Outpatient (CLI) | payer OTHER, BC | LOC: HYPER 10:52 | PROVIDERS: ATTEND Emergency Medicine | DX: T87.81 Dehiscence of amputation stump (principal); E11.621 Type 2 diabetes mellitus with foot ulcer; L97.514 Non-pressure chronic ulcer of other part of right foot with necrosis of bone; E11.69 Type 2 diabetes mellitus with other specified complication; M86.671 Other chronic osteomyelitis, right ankle and foot; E11.52 Type 2 diabetes mellitus with diabetic peripheral angiopathy with gangrene; I96 Gangrene, not elsewhere classified; M79.604 Pain in right leg; B19.20 Unspecified viral hepatitis C without hepatic coma; I10 Essential (primary) hypertension; E78.5 Hyperlipidemia, unspecified; I25.2 Old myocardial infarction; Z79.84 Long term (current) use of oral hypoglycemic drugs; Z79.82 Long term (current) use of aspirin; Z95.5 Presence of coronary angioplasty implant and graft; Z87.891 Personal history of nicotine dependence; Y83.5 Amputation of limb(s) as the cause of abnormal reaction of the patient, or of later complication, without mention of misadventure at the time of the procedure ==

== ENCOUNTER → 2020-02-11 | Outpatient (CLI) | payer OTHER, BC | LOC: HYPER 09:20 | PROVIDERS: ATTEND Emergency Medicine | DX: T87.81 Dehiscence of amputation stump (principal); E11.621 Type 2 diabetes mellitus with foot ulcer; L97.514 Non-pressure chronic ulcer of other part of right foot with necrosis of bone; E11.69 Type 2 diabetes mellitus with other specified complication; M86.671 Other chronic osteomyelitis, right ankle and foot; E11.52 Type 2 diabetes mellitus with diabetic peripheral angiopathy with gangrene; I96 Gangrene, not elsewhere classified; B19.20 Unspecified viral hepatitis C without hepatic coma; E78.5 Hyperlipidemia, unspecified; I25.2 Old myocardial infarction; I10 Essential (primary) hypertension; M79.604 Pain in right leg; Z87.891 Personal history of nicotine dependence; Z79.82 Long term (current) use of aspirin; Z79.84 Long term (current) use of oral hypoglycemic drugs; Z95.5 Presence of coronary angioplasty implant and graft; Z95.828 Presence of other vascular implants and grafts; Y83.5 Amputation of limb(s) as the cause of abnormal reaction of the patient, or of later complication, without mention of misadventure at the time of the procedure ==

== ENCOUNTER → 2020-02-25 | Outpatient (CLI) | payer OTHER, BC | LOC: HYPER 10:09 | PROVIDERS: ATTEND Emergency Medicine | DX: T87.81 Dehiscence of amputation stump (principal); E11.621 Type 2 diabetes mellitus with foot ulcer; L97.514 Non-pressure chronic ulcer of other part of right foot with necrosis of bone; E11.69 Type 2 diabetes mellitus with other specified complication; M86.671 Other chronic osteomyelitis, right ankle and foot; E11.52 Type 2 diabetes mellitus with diabetic peripheral angiopathy with gangrene; I96 Gangrene, not elsewhere classified; B19.20 Unspecified viral hepatitis C without hepatic coma; E78.5 Hyperlipidemia, unspecified; I10 Essential (primary) hypertension; I25.2 Old myocardial infarction; M79.604 Pain in right leg; Z95.5 Presence of coronary angioplasty implant and graft; Z79.84 Long term (current) use of oral hypoglycemic drugs; Z79.82 Long term (current) use of aspirin; Z87.891 Personal history of nicotine dependence; Z95.828 Presence of other vascular implants and grafts; Y83.5 Amputation of limb(s) as the cause of abnormal reaction of the patient, or of later complication, without mention of misadventure at the time of the procedure ==

== ENCOUNTER → 2020-03-24 | Outpatient (CLI) | payer OTHER, BC | LOC: HYPER 09:45 | PROVIDERS: ATTEND Emergency Medicine | DX: T87.81 Dehiscence of amputation stump (principal); E11.621 Type 2 diabetes mellitus with foot ulcer; L97.514 Non-pressure chronic ulcer of other part of right foot with necrosis of bone; E11.69 Type 2 diabetes mellitus with other specified complication; M86.671 Other chronic osteomyelitis, right ankle and foot; E11.52 Type 2 diabetes mellitus with diabetic peripheral angiopathy with gangrene; I96 Gangrene, not elsewhere classified; B19.20 Unspecified viral hepatitis C without hepatic coma; I10 Essential (primary) hypertension; M79.604 Pain in right leg; E78.5 Hyperlipidemia, unspecified; I25.2 Old myocardial infarction; Z79.84 Long term (current) use of oral hypoglycemic drugs; Z79.82 Long term (current) use of aspirin; Z95.5 Presence of coronary angioplasty implant and graft; Z87.891 Personal history of nicotine dependence; Y83.5 Amputation of limb(s) as the cause of abnormal reaction of the patient, or of later complication, without mention of misadventure at the time of the procedure ==

== ENCOUNTER → 2020-03-31 | Outpatient (CLI) | payer OTHER | LOC: SJCVCIMAG 08:20 → SJCVC 08:20 → SJCVCIMAG 10:25 | PROVIDERS: ATTEND Internal Medicine Cardiovascular Disease | DX: R94.31 Abnormal electrocardiogram [ECG] [EKG] (principal); I25.10 Atherosclerotic heart disease of native coronary artery without angina pectoris; E11.9 Type 2 diabetes mellitus without complications; J44.9 Chronic obstructive pulmonary disease, unspecified; I25.5 Ischemic cardiomyopathy; I10 Essential (primary) hypertension; I73.9 Peripheral vascular disease, unspecified; E78.00 Pure hypercholesterolemia, unspecified; Z95.1 Presence of aortocoronary bypass graft ==

== ENCOUNTER 2020-06-06 08:57 | Emergency (ER) | payer OTHER ==
[~2020-06-06] VITALS: Ht 162.6 cm; Wt 64.0 kg
[2020-06-06] MEDS ORDERED: HYDROCODON-ACE1 EAC7 PO (09:12)
[2020-06-06 09:40] LABS: ABSOLUTE NEUTROPHILS 6.1 thou/uL (1.4-8.2); BASOPHILS 0.8 % (0.0-2.0); EOSINOPHILS 7.4 % (0.0-3.0); HEMATOCRIT 32.3 % (42.0-52.0); LYMPHOCYTES 13.6 % (24.0-44.0); MCH 28.8 pg (26.0-34.0); MCHC 33.9 g/dL (28.0-37.0); MONOCYTES 7.3 % (1.0-8.0); PLATELET COUNT 374 thou/uL (150-400); POLYS 70.9 % (36.0-66.0); RDW 15.3 % (10.5-14.5); WBC 8.6 thou/uL (4.0-11.0)
[2020-06-06 09:48] LABS: CALCIUM 9.9 mg/dL (8.5-10.1); CREATININE 1.7 mg/dL (0.7-1.3); POTASSIUM 4.3 mmol/L (3.5-5.1)
[2020-06-06 11:16] LABS: URINE BILIRUBIN NEGATIVE (Negative); URINE BLOOD NEGATIVE (Negative); URINE CLARITY CLEAR; URINE COLOR YELLOW; URINE GLUCOSE-RANDOM* NEGATIVE (Negative); URINE KETONES NEGATIVE (Negative); URINE LEUKOCYTES-REFLEX NEGATIVE (Negative); URINE NITRITE-REFLEX NEGATIVE (Negative); URINE PROTEIN (DIPSTICK) NEGATIVE (Negative); URINE SPECIFIC GRAVITY 1.015 (1.005-1.035); URINE UROBILINOGEN 0.2 E.U./dl (0.2-1.0)
[2020-06-06 13:10] VITALS: BP 139/82
--- NOTE | 2020-06-06 13:32 | EKG ---
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
== END 2020-06-06 13:10 | disposition home or self-care (01) ==
LOC: ER 08:57
PROVIDERS: Emergency Medicine
DX: R30.0 Dysuria (principal); I10 Essential (primary) hypertension; E11.9 Type 2 diabetes mellitus without complications; Z79.82 Long term (current) use of aspirin; Z79.01 Long term (current) use of anticoagulants; Z79.899 Other long term (current) drug therapy; Z87.891 Personal history of nicotine dependence; Z88.8 Allergy status to other drugs, medicaments and biological substances

== ENCOUNTER → 2020-10-06 | Outpatient (CLI) | payer OTHER ==
[~2020-10-06] MED LIST changes: +HYDROCODON-ACE1 EAC7 PO
== END ==
LOC: SJCVC 13:32
PROVIDERS: ATTEND Internal Medicine Cardiovascular Disease
DX: I25.10 Atherosclerotic heart disease of native coronary artery without angina pectoris (principal); I10 Essential (primary) hypertension; E78.00 Pure hypercholesterolemia, unspecified; E11.40 Type 2 diabetes mellitus with diabetic neuropathy, unspecified; E11.51 Type 2 diabetes mellitus with diabetic peripheral angiopathy without gangrene; I25.5 Ischemic cardiomyopathy; I65.23 Occlusion and stenosis of bilateral carotid arteries; M79.604 Pain in right leg; M79.605 Pain in left leg; I25.2 Old myocardial infarction; F17.210 Nicotine dependence, cigarettes, uncomplicated; Z79.899 Other long term (current) drug therapy; Z95.828 Presence of other vascular implants and grafts; Z72.89 Other problems related to lifestyle; Z88.1 Allergy status to other antibiotic agents; Z95.1 Presence of aortocoronary bypass graft

== ENCOUNTER 2021-01-12 12:33 | Emergency (ER) | payer OTHER ==
[~2021-01-12] VITALS: Ht 165.1 cm; Wt 63.5 kg
[2021-01-12 13:38] LABS: ABSOLUTE NEUTROPHILS 6.2 thou/uL (1.4-8.2); BASOPHILS 0.8 % (0.0-2.0); EOSINOPHILS 7.1 % (0.0-3.0); HEMATOCRIT 36.9 % (42.0-52.0); HEMOGLOBIN 12.9 gm/dL (14.0-18.0); MCH 30.3 pg (26.0-34.0); MCHC 34.8 g/dL (28.0-37.0); MCV 86.9 fL (80.0-100.0); MONOCYTES 6.4 % (1.0-8.0); PLATELET COUNT 240 thou/uL (150-400); POLYS 73.7 % (36.0-66.0); RBC 4.25 mil/uL (4.50-6.00); WBC 8.4 thou/uL (4.0-11.0)
[2021-01-12 13:46] LABS: ANION GAP 8 mmol/L (7-16); BUN 25 mg/dL (7-18); CALCIUM 8.8 mg/dL (8.5-10.1); CHLORIDE 98 mmol/L (98-107); CO2 26 mmol/L (21-32); CREATININE 1.9 mg/dL (0.7-1.3); GLUCOSE 264 mg/dL (74-106); POTASSIUM 4.2 mmol/L (3.5-5.1); SODIUM 132 mmol/L (136-145)
[2021-01-12 13:55] LABS: ALBUMIN 3.7 g/dL (3.4-5.0); SGOT 15 U/L (15-37); SGPT 19 U/L (30-65); TOTAL BILIRUBIN 0.8 mg/dL (0.2-1.0); TOTAL PROTEIN 8.1 g/dL (6.4-8.2); TROPONIN-I <0.06 ng/mL (<0.06)
[2021-01-12 15:44] VITALS: BP 148/84
--- NOTE | 2021-01-12 20:09 | EKG ---
[facility] [place] [address] ELECTROCARDIOGRAM REPORT Name: MARQUISE SUJATHA [id number] Admission: 01/12/21 Attend Phys: Discharge: 01/12/21 Date of : 52 Report #: [id number] 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: travis : 1950 Requested By: Chance Paredes Order Number: [id number] MD: Enrrique Maya Measurements Intervals [place] Rate: 60 P: 140 [place]: 55 QRS: 30 QRSD: 96 T: 32 QT: 391 QTc: 391 Interpretive Statements Sinus rhythm with first-degree AV block Probable anteroseptal infarct, old Compared to ECG 06/06/2020 10:20:35 First-degree AV block is now present Septal Q waves are now present Electronically Signed On 01-12-2021 20:09:09 CDT by Enrrique Maya [email or web address] <ELECTRONICALLY SIGNED> By: Enrrique Maya MD, [facility] 01/12/212008 1635 163 Enrrique Maya MD, [facility] /EPI
== END 2021-01-12 15:45 | disposition still patient (30) ==
LOC: ER 12:33
PROVIDERS: Emergency Medicine
DX: M54.2 Cervicalgia (principal); E11.9 Type 2 diabetes mellitus without complications; I10 Essential (primary) hypertension; I73.9 Peripheral vascular disease, unspecified; F41.9 Anxiety disorder, unspecified; F32.9 Major depressive disorder, single episode, unspecified; Z98.890 Other specified postprocedural states; Z79.891 Long term (current) use of opiate analgesic; Z79.82 Long term (current) use of aspirin; Z79.899 Other long term (current) drug therapy; Z88.8 Allergy status to other drugs, medicaments and biological substances; V59.88XA Occupant (driver) (passenger) of pick-up truck or van injured in other specified transport accidents, initial encounter; Y93.89 Activity, other specified; Y92.89 Other specified places as the place of occurrence of the external cause; Y99.8 Other external cause status

== ENCOUNTER → 2021-02-24 | Outpatient (CLI) | payer OTHER ==
[~2021-02-24] MED LIST changes: +KLOR-CON20 ME1 PO; +LIPITOR40 MG PO
== END ==
LOC: SJCVCIMAG 12:46
PROVIDERS: ATTEND Internal Medicine Cardiovascular Disease
DX: I70.201 Unspecified atherosclerosis of native arteries of extremities, right leg (principal); I65.23 Occlusion and stenosis of bilateral carotid arteries; I25.810 Atherosclerosis of coronary artery bypass graft(s) without angina pectoris; I73.9 Peripheral vascular disease, unspecified; I77.1 Stricture of artery; E78.00 Pure hypercholesterolemia, unspecified; E11.9 Type 2 diabetes mellitus without complications; I25.5 Ischemic cardiomyopathy; I10 Essential (primary) hypertension; R07.9 Chest pain, unspecified; M79.604 Pain in right leg; M79.605 Pain in left leg; R06.00 Dyspnea, unspecified; J44.9 Chronic obstructive pulmonary disease, unspecified; F17.210 Nicotine dependence, cigarettes, uncomplicated; Z72.89 Other problems related to lifestyle; Z95.1 Presence of aortocoronary bypass graft; Z95.828 Presence of other vascular implants and grafts; Z79.82 Long term (current) use of aspirin; Z79.84 Long term (current) use of oral hypoglycemic drugs; Z79.899 Other long term (current) drug therapy

== ENCOUNTER → 2021-02-27 | Outpatient (CLI) | payer OTHER ==
[~2021-02-27] VITALS: Ht 165.1 cm; Wt 63.5 kg
[2021-02-27 10:21] VITALS: BP 125/68
[2021-02-27 10:34] LABS: HEMOGLOBIN 13.5 gm/dL (14.0-18.0); MCH 29.9 pg (26.0-34.0); MCHC 33.9 g/dL (28.0-37.0); MCV 88.4 fL (80.0-100.0); RBC 4.53 mil/uL (4.50-6.00); RDW 14.6 % (10.5-14.5); WBC 6.7 thou/uL (4.0-11.0)
[2021-02-27 10:38] LABS: CALCIUM 8.9 mg/dL (8.5-10.1); CREATININE 1.6 mg/dL (0.7-1.3); POTASSIUM 4.4 mmol/L (3.5-5.1)
--- NOTE | 2021-02-28 14:51 | CATHLAB ---
[facility] [place] [address] INVASIVE PROCEDURE REPORT Name: MARQUISE SUJATHA Room #: REG GABRIELLE Jovel.#: [id number] Admission: 02/27/21 Attend Phys: Clifford Crawford MD Discharge: Date of : 52 Report #: [id number] THIS REPORT FOR: cc: Demetrice Chaparro Diane C. DO Mancuso, Gerald M. MD [facility] ~ APPROVED REPORT Study performed: 02/27/2021 12:44:47 Patient Details Patient Status: In-Patient Room #: The patient is a 71 year-old male Event Personnel Judah Trammell Commercial Drafter, Floridalma Saldaña RT(R)() Jose Thomas Jessica RN, Wild Alvarez RTR Monitor Procedures Performed Left Heart Cath w/or w/o Coronaries [id number] [facility] Art Access - L femoral artery* 28300 Initial Mod Sed Same Phys/QHP Gr5y 830182 39055 Mod Sed Same Phys/QHP Ea 649913 Hemostasis w/ Mynx Indication Chest pain Procedure Narrative The patient was brought electively to the Cardiac Catheterization Laboratory and was prepped and draped in a sterile manner. A SHEATH BRITE-TIP 6F X 11CM ([id number]) sheath was inserted into the LFA^. Coronary angiography was performed using coronary diagnostic catheters. The right coronary system was accessed and visualized with a JR4 catheter. The left coronary system was accessed and visualized with a JL4 catheter. The left ventricle was accessed and visualized with a PIGTAIL catheter. Left ventricular/Aortic Valve gradient assessed via catheter pullback. Left ventriculogram was performed in 30 degree projection. Closure device was deployed with a Fr MYNXGRIP 6/7F #[id number]. The patient tolerated the procedure well and there were no complications associated with the procedure. There was no hematoma. This was a combo case with Dr Crawford. He had 10.34 mins of fluoroand used 121ml of Visipaque for his part of the case. He gave 0.5mg of Versed and 50mcg of Fentanyl. [address] [address] INVASIVE PROCEDURE REPORT Name: MARQUISE SUJATHA Room #: [facility] [id number] Admission: 02/27/21 Attend Phys: Clifford Crawford, Discharge: Date of : 52 Report #: [id number] Intraoperative Conscious Sedation Sedation start time: 11:43 Case end Time: 13:52 Fentanyl 75 mcg Versed 1 mg Fluoro Time: 19.48 minutes Dose: DAP 13983.40 cGycm2 1873 mGy Contrast Type and Amount: Visipaque 286 ml Hemodynamics The aortic pressure is 174/71 mmHg with a mean of 100 mmHg. The left ventricular pressure is 168/15 mmHg with a mean of mmHg. The left ventricular end diastolic pressure is 27 mmHg. Pullback from the left ventricle to the aorta revealed no gradient across the aortic valve. PCI Technique Lesion Percutaneous coronary intervention was performed on the External iliac. PCI Technique Lesion 2 Percutaneous Coronary Intervention was performed on the Common iliac. Conclusion #1 Normal left ventricular size and mild global hypokinesis EF 45 to 50% range. #2 left main long mildly disease giving rise to LAD and circumflex. #3 the LAD is occluded proximally fills via a MEJÍA graft. #4 MEJÍA to LAD is intact with mild irregularities the mid and distal LAD is moderately diseased after the anastomosis. Small in caliber and attenuated. 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 #6 an SVG to a OM system is intact the graft is well preserved the vessel is otherwise small and attenuated diffusely disease. But filling briskly. #7 SVG to PDA is intact with an eccentric 40 to 50% proximal vein graft lesion then filling a small PDA which retrograde fills a small MARGARITA. Recommendations and plan: Continue aggressive risk factor [address] [address] INVASIVE PROCEDURE REPORT Name: MARQUISE SUJATHA Room #: [facility] [id number] Admission: 02/27/21 Attend Phys: Clifford Crawford, Discharge: Date of : 52 Report #: [id number] modification. There is no indication for coronary intervention. Patient had peripheral intervention see Dr. Crawford's note. <ELECTRONICALLY SIGNED> By: Judah Trammell MD, FACC 02/28/211450 50 50 Judah Trammell MD, FACC /INF
== END | disposition home or self-care (01) ==
LOC: CATH 06:51
PROVIDERS: ATTEND Nuclear Medicine Nuclear Cardiology
DX: R07.9 Chest pain, unspecified (principal); I25.810 Atherosclerosis of coronary artery bypass graft(s) without angina pectoris; I70.213 Atherosclerosis of native arteries of extremities with intermittent claudication, bilateral legs; I70.1 Atherosclerosis of renal artery; M79.604 Pain in right leg; M79.605 Pain in left leg; I10 Essential (primary) hypertension; E11.9 Type 2 diabetes mellitus without complications; I25.2 Old myocardial infarction; E78.00 Pure hypercholesterolemia, unspecified; I25.5 Ischemic cardiomyopathy; F41.9 Anxiety disorder, unspecified; F32.9 Major depressive disorder, single episode, unspecified; F17.210 Nicotine dependence, cigarettes, uncomplicated; Z98.890 Other specified postprocedural states; Z79.899 Other long term (current) drug therapy; Z95.1 Presence of aortocoronary bypass graft; Z88.8 Allergy status to other drugs, medicaments and biological substances

== ENCOUNTER → 2021-04-18 | Outpatient (CLI) | payer OTHER | LOC: SJCVCIMAG 13:20 | PROVIDERS: ATTEND Internal Medicine Cardiovascular Disease | DX: I70.203 Unspecified atherosclerosis of native arteries of extremities, bilateral legs (principal); M79.606 Pain in leg, unspecified ==

== ENCOUNTER → 2021-04-19 | Outpatient (CLI) | payer OTHER | LOC: HYPER 07:38 | PROVIDERS: ATTEND Emergency Medicine | DX: T87.81 Dehiscence of amputation stump (principal); E11.621 Type 2 diabetes mellitus with foot ulcer; I70.235 Atherosclerosis of native arteries of right leg with ulceration of other part of foot; L97.514 Non-pressure chronic ulcer of other part of right foot with necrosis of bone; E11.69 Type 2 diabetes mellitus with other specified complication; M86.671 Other chronic osteomyelitis, right ankle and foot; E11.52 Type 2 diabetes mellitus with diabetic peripheral angiopathy with gangrene; I96 Gangrene, not elsewhere classified; B19.20 Unspecified viral hepatitis C without hepatic coma; I10 Essential (primary) hypertension; M79.604 Pain in right leg; E78.5 Hyperlipidemia, unspecified; I25.2 Old myocardial infarction; Z79.84 Long term (current) use of oral hypoglycemic drugs; Z79.82 Long term (current) use of aspirin; Z95.5 Presence of coronary angioplasty implant and graft; Z87.891 Personal history of nicotine dependence; Y83.5 Amputation of limb(s) as the cause of abnormal reaction of the patient, or of later complication, without mention of misadventure at the time of the procedure ==

== ENCOUNTER → 2021-05-01 | Outpatient (CLI) | payer OTHER | LOC: HYPER 11:06 | PROVIDERS: ATTEND Emergency Medicine | DX: T87.81 Dehiscence of amputation stump (principal); I70.235 Atherosclerosis of native arteries of right leg with ulceration of other part of foot; E11.621 Type 2 diabetes mellitus with foot ulcer; L97.511 Non-pressure chronic ulcer of other part of right foot limited to breakdown of skin; E11.51 Type 2 diabetes mellitus with diabetic peripheral angiopathy without gangrene; I10 Essential (primary) hypertension; E78.5 Hyperlipidemia, unspecified; I25.2 Old myocardial infarction; Z87.891 Personal history of nicotine dependence; Z79.84 Long term (current) use of oral hypoglycemic drugs; Z79.82 Long term (current) use of aspirin; Z79.899 Other long term (current) drug therapy; Y83.5 Amputation of limb(s) as the cause of abnormal reaction of the patient, or of later complication, without mention of misadventure at the time of the procedure ==

== ENCOUNTER → 2021-05-23 | Outpatient (CLI) | payer OTHER | LOC: HYPER 14:30 | PROVIDERS: ATTEND Emergency Medicine | DX: T87.89 Other complications of amputation stump (principal); I70.235 Atherosclerosis of native arteries of right leg with ulceration of other part of foot; E11.622 Type 2 diabetes mellitus with other skin ulcer; L97.511 Non-pressure chronic ulcer of other part of right foot limited to breakdown of skin; E11.51 Type 2 diabetes mellitus with diabetic peripheral angiopathy without gangrene; I10 Essential (primary) hypertension; E78.5 Hyperlipidemia, unspecified; I25.2 Old myocardial infarction; Z87.891 Personal history of nicotine dependence; Z79.84 Long term (current) use of oral hypoglycemic drugs; Z79.82 Long term (current) use of aspirin; Z95.5 Presence of coronary angioplasty implant and graft; Z95.828 Presence of other vascular implants and grafts; Z79.899 Other long term (current) drug therapy; Y83.5 Amputation of limb(s) as the cause of abnormal reaction of the patient, or of later complication, without mention of misadventure at the time of the procedure ==

== ENCOUNTER → 2021-06-05 | Outpatient (CLI) | payer OTHER | LOC: HYPER 14:28 | PROVIDERS: ATTEND Emergency Medicine | DX: T87.89 Other complications of amputation stump (principal); E11.621 Type 2 diabetes mellitus with foot ulcer; I70.235 Atherosclerosis of native arteries of right leg with ulceration of other part of foot; L97.511 Non-pressure chronic ulcer of other part of right foot limited to breakdown of skin; E11.51 Type 2 diabetes mellitus with diabetic peripheral angiopathy without gangrene; E11.40 Type 2 diabetes mellitus with diabetic neuropathy, unspecified; E78.5 Hyperlipidemia, unspecified; I10 Essential (primary) hypertension; I25.2 Old myocardial infarction; Z87.891 Personal history of nicotine dependence; Z79.84 Long term (current) use of oral hypoglycemic drugs; Z79.82 Long term (current) use of aspirin; Z95.5 Presence of coronary angioplasty implant and graft; Z95.828 Presence of other vascular implants and grafts; Y83.5 Amputation of limb(s) as the cause of abnormal reaction of the patient, or of later complication, without mention of misadventure at the time of the procedure ==

== ENCOUNTER → 2021-06-27 | Outpatient (CLI) | payer BC, OTHER | LOC: HYPER 10:46 | PROVIDERS: ATTEND Emergency Medicine | DX: T87.89 Other complications of amputation stump (principal); E11.621 Type 2 diabetes mellitus with foot ulcer; I70.235 Atherosclerosis of native arteries of right leg with ulceration of other part of foot; L97.511 Non-pressure chronic ulcer of other part of right foot limited to breakdown of skin; E11.51 Type 2 diabetes mellitus with diabetic peripheral angiopathy without gangrene; E11.40 Type 2 diabetes mellitus with diabetic neuropathy, unspecified; E78.5 Hyperlipidemia, unspecified; I10 Essential (primary) hypertension; I25.2 Old myocardial infarction; Z87.891 Personal history of nicotine dependence; Z79.84 Long term (current) use of oral hypoglycemic drugs; Z79.82 Long term (current) use of aspirin; Z95.5 Presence of coronary angioplasty implant and graft; Z95.828 Presence of other vascular implants and grafts; Y83.5 Amputation of limb(s) as the cause of abnormal reaction of the patient, or of later complication, without mention of misadventure at the time of the procedure ==

== ENCOUNTER → 2021-07-25 | Outpatient (CLI) | payer BC, OTHER | LOC: HYPER 09:31 | PROVIDERS: ATTEND Emergency Medicine | DX: T87.89 Other complications of amputation stump (principal); E11.621 Type 2 diabetes mellitus with foot ulcer; I70.235 Atherosclerosis of native arteries of right leg with ulceration of other part of foot; L97.511 Non-pressure chronic ulcer of other part of right foot limited to breakdown of skin; E11.51 Type 2 diabetes mellitus with diabetic peripheral angiopathy without gangrene; E11.40 Type 2 diabetes mellitus with diabetic neuropathy, unspecified; E78.5 Hyperlipidemia, unspecified; I10 Essential (primary) hypertension; I25.2 Old myocardial infarction; Z87.891 Personal history of nicotine dependence; Z79.84 Long term (current) use of oral hypoglycemic drugs; Z79.82 Long term (current) use of aspirin; Z95.5 Presence of coronary angioplasty implant and graft; Z95.828 Presence of other vascular implants and grafts; Y83.5 Amputation of limb(s) as the cause of abnormal reaction of the patient, or of later complication, without mention of misadventure at the time of the procedure ==